=== PATIENT | male | born 1970 | race Caucasian/White ===

== ENCOUNTER 2020-07-21 13:36 | Outpatient (CLI) | payer OTHER ==
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
== END 2020-07-21 13:37 | disposition home or self-care (01) ==
LOC: SC 13:36
PROVIDERS: ATTEND Internal Medicine Pulmonary Disease
DX: G47.10 Hypersomnia, unspecified (principal); R41.89 Other symptoms and signs involving cognitive functions and awareness; G47.8 Other sleep disorders; R06.81 Apnea, not elsewhere classified; R06.83 Snoring; G47.00 Insomnia, unspecified; E66.9 Obesity, unspecified; Z68.38 Body mass index [BMI] 38.0-38.9, adult
CPT/HCPCS: 99202; 99212

== ENCOUNTER 2020-08-06 10:10 | Emergency (ER) | payer OTHER ==
[2020-08-06 11:25] LABS: BASOPHILS % (AUTO) 0.8 %; EOSINOPHILS % (AUTO) 5.7 %; HGB - HEMOGLOBIN 7.7 g/dL (14.0-18.0); LYMPHOCYTES % (AUTO) 19.5 %; MEAN CORPUSCULAR HEMOGLOBIN 25.7 pg (27.0-31.0); MEAN CORPUSCULAR HGB CONC 28.5 g/dL (32.0-36.0); MEAN PLATELET VOLUME 8.9 fL (7.4-11.4); MONOCYTES % (AUTO) 13.8 %; NEUTROPHILS % (AUTO) 59.8 %; PLT - PLATELET COUNT 85 10^3/uL (130-450); RED CELL DISTRIBUTION WIDTH 20.4 % (12.0-15.0); WHITE BLOOD COUNT 2.5 x10^3/uL (4.8-10.8)
[2020-08-06 11:27] LABS: ABNORMAL LYMPHS % (MANUAL) 0 %
[2020-08-06 11:32] LABS: BILIRUBIN,URINE NEGATIVE (NEGATIVE); GLUCOSE, URINE (UA) NEGATIVE (NEGATIVE); KETONES,URINE (UA) NEGATIVE (NEGATIVE); LEUKOCYTE ESTERASE, URINE NEGATIVE (NEGATIVE); NITRITE,URINE NEGATIVE (NEGATIVE); OCCULT BLOOD,URINE SMALL (NEGATIVE); PROTEIN,URINE NEGATIVE (NEGATIVE); UROBILINOGEN,URINE 0.2 (NORMAL) E.U./dL (NORMAL)
[2020-08-06 11:33] LABS: CLARITY,URINE CLEAR (CLEAR)
[2020-08-06 11:43] LABS: ALBUMIN 3.1 g/dL (3.2-5.5); ALBUMIN/GLOBULIN RATIO 0.6 (1.0-2.2); CALCIUM 8.5 mg/dL (8.5-10.3); CREATININE 1.3 mg/dL (0.6-1.2); TOTAL PROTEIN 7.9 g/dL (6.7-8.2)
[2020-08-06 11:45] LABS: BACTERIA,URINE None Seen /HPF (None Seen); RBC,URINE 0-5 /HPF (0-5); SQUAMOUS EPITHELIAL CELL,UR NONE SEEN (<= Few)
[2020-08-06 11:57] LABS: BAND NEUTROPHILS % (MANUAL) 2 %; BASOPHILS # (MANUAL) 0.1 10^3/uL (0-0.1); BASOPHILS % (MANUAL) 2 %; EOSINOPHILS # (MANUAL) 0.1 10^3/uL (0-0.7); LYMPHOCYTES # (MANUAL) 0.5 10^3/uL (1.5-3.5); LYMPHOCYTES % (MANUAL) 19 %; MONOCYTES # (MANUAL) 0.2 10^3/uL (0.0-1.0)
[2020-08-06 11:59] LABS: PLATELET ESTIMATE, MANUAL DECREASED (<130,000) (NORMAL)
[2020-08-06 12:00] LABS: DIFFERENTIAL COMMENT MANUAL DIFFERENTIAL; PLATELET MORPHOLOGY NORMAL APP (NORMAL)
[2020-08-06] MEDS ORDERED: LIDOCAINE-EPINEPH-TETRACAINE 3 ML SYRINGE TOP STA (12:32)
--- NOTE | 2020-08-06 13:02 | ED Physician Documentation ---
History of Present Illness - Stated complaint Stated Complaint: BLEEDING FROM OSTOMY - Chief complaint Chief Complaint: General - History obtained from History obtained from: Patient - Additonal information Additional information: Pt comes to the ED with CC of bleeding from stoma. Pt states that this has been going on for a few weeks, and that he has actually been followed by surgery and the ostomy care nurse for this. He states that there is raw skin around the edge of the stomal mucosa, which has been determined to be the source of the bleeding. Pt states that today, he checked his bag, and noticed it was about 1/3 full of blood. He thinks the bleeding may have stopped now. No lightheadedness. No obvious blood in stool. Normal stool output. Review of Systems Ten Systems: 10 systems reviewed and negative Constitutional: reports: Reviewed and negative Eyes: reports: Reviewed and negative Ears: reports: Reviewed and negative Nose: reports: Reviewed and negative Throat: reports: Reviewed and negative Cardiac: reports: Reviewed and negative Respiratory: reports: Reviewed and negative GI: reports: Reviewed and negative : reports: Reviewed and negative Skin: reports: Reviewed and negative Musculoskeletal: reports: Reviewed and negative Neurologic: reports: Reviewed and negative Psychiatric: reports: Reviewed and negative Endocrine: reports: Reviewed and negative Immunocompromised: reports: Reviewed and negative PD PAST MEDICAL HISTORY - Past Medical History Cardiovascular: Hypertension Neuro: Migraines, Peripheral neuropathy, Seizure disorder Psych: Depression, Anxiety Musculoskeletal: Osteoarthritis, Gout - Past Surgical History General: Bowel surgery, Colonoscopy, EGD - Present Medications Home Medications: Ambulatory Orders Medication Instructions Recorded Confirmed Acetaminophen [Tylenol] 650 mg PO Q6H PRN MDD 3000mg 07/28/20 08/06/20 Colchicine [Colcrys] 0.6 mg PO DAILY PRN 07/28/20 08/06/20 Lactulose 3 ml PO DAILY 07/28/20 08/06/20 Multivitamin 1 each PO DAILY 07/28/20 08/06/20 Omeprazole 40 mg PO DAILY 07/28/20 08/06/20 Oxycodone HCl 10 mg PO Q6HR PRN 07/28/20 08/06/20 Propranolol [Inderal] 20 mg PO BID 07/28/20 08/06/20 Tumeric 1 cap PO DAILY 07/28/20 08/06/20 allopurinoL [Zyloprim] 100 mg PO DAILY 07/28/20 08/06/20 - Allergies Allergies/Adverse Reactions: Allergies Allergy/AdvReac Type Severity Reaction Status Date / Time No Known Drug Allergies Allergy Verified 08/06/20 10:29 - Social History Smoking Status: Current every day smoker PD ED PE NORMAL - Vitals Vital signs reviewed: Yes - General General: Alert and oriented X 3, No acute distress - HEENT HEENT: Atraumatic, PERRL, EOMI, Moist mucous membranes - Neck Neck: Supple, no meningeal sign - Respiratory Respiratory: No respiratory distress - Abdomen Abdomen: Soft, Non tender, Non distended, Other (healthy-appearing ostomy site with mild skin breakdown around edges. No active bleeding, though mild amount of fresh, bloody residue is noted. Normal-appearing stool. No surrounding erythema.) - Derm Derm: Normal color, Warm and dry, No rash - Extremities Extremities: No deformity - Neuro Neuro: Alert and oriented X 3 - Psych Psych: Normal mood, Normal affect Results - Vitals Vitals: Vital Signs - 24 hr 08/06/20 08/06/20 08/06/20 12:07 13:00 13:30 Temperature 36.6 C 36.9 C Heart Rate 72 80 83 Respiratory 17 16 24 Rate Blood Pressure 156/72 H 161/77 H 157/82 H O2 Saturation 100 100 99 Oxygen O2 Source Room air - Labs Labs: Laboratory Tests 08/06/20 08/06/20 08/06/20 11:00 11:20 11:22 WBC 2.5 L RBC 3.00 L Hgb 7.7 L Hct 27.0 L MCV 90.0 MCH 25.7 L MCHC 28.5 L RDW 20.4 H Plt Count 85 L MPV 8.9 Neut # (Auto) Not Reportable Lymph # (Auto) Not Reportable [place] # (Auto) Not Reportable Eos # (Auto) Not Reportable Baso # (Auto) Not Reportable Absolute Nucleated RBC Not Reportable Total Counted 100 Band Neuts % (Manual) 2 Abnorm Lymph % (Manual) 0 Nucleated RBC % Not Reportable Neutrophils # (Manual) 1.7 Lymphocytes # (Manual) 0.5 L Monocytes # (Manual) 0.2 Eosinophils # (Manual) 0.1 Basophils # (Manual) 0.1 Differential Comment MANUAL DIFFERENTIAL WBC Morphology NORMAL APPEARANCE Platelet Estimate DECREASED (<130,000) Platelet Morphology NORMAL GWEN RBC Morph Micro Appear 1+ HYPOCHROMASIA Sodium 139 Potassium 4.3 Chloride 108 Carbon Dioxide 19 L Anion Gap 12.0 BUN 32 H Creatinine 1.3 H Estimated GFR (MDRD) 59 L Glucose 123 H Calcium 8.5 Total Bilirubin 1.0 AST 75 H ALT 38 Alkaline Phosphatase 102 Total Protein 7.9 Albumin 3.1 L Globulin 4.8 H Albumin/Globulin Ratio 0.6 L Lipase 70 H Urine Color YELLOW Urine Clarity CLEAR Urine pH 6.0 Ur Specific [place] 1.020 Urine Protein NEGATIVE Urine Glucose (UA) NEGATIVE Urine Ketones NEGATIVE Urine Occult Blood SMALL H Urine Nitrite NEGATIVE Urine Bilirubin NEGATIVE Urine Urobilinogen 0.2 (NORMAL) Ur Leukocyte Esterase NEGATIVE Urine RBC 0-5 Urine WBC 0-3 Ur Squamous Epith Cells NONE SEEN Urine Bacteria None Seen Ur Microscopic Review INDICATED Urine Culture Comments NOT INDICATED PD MEDICAL DECISION MAKING - ED course Complexity details: considered differential, d/w patient ED course: I d/w pt that there is no current bleeding, and I do not recommend cautery at this time. I have applied LET to the areas of concern, and we have replaced the ostomy bag. We have discussed the usual indications for return. Departure - Departure Disposition: 01 Home, Self Care Clinical Impression: Complication of ostomy Condition: Stable Instructions: Colostomy Stoma Care Comments: Your ostomy site actually looks pretty good today. There is no evidence of ongoing bleeding, though there was some raw mucosa that is likely the source of the bleeding when it does occur. We have placed a vasoconstricting agent, epinephrine, on the area to help cinch up the blood vessels and prevent bleeding in the next few hours. Please continue to follow-up with your ostomy care team and surgeon for further intervention regarding this. Discharge Date/Time: 08/06/20 13:45
[2020-08-06 13:30] VITALS: BP 157/82
== END 2020-08-06 13:45 | disposition home or self-care (01) ==
LOC: ED 10:10
DX: K94.01 Colostomy hemorrhage (principal); I10 Essential (primary) hypertension; F17.200 Nicotine dependence, unspecified, uncomplicated
CPT/HCPCS: 36415; 80053; 81001; 81003; 83690; 85025; 87086; 99283; 99284

== ENCOUNTER 2020-08-14 13:39 | Observation (INO) | payer OTHER ==
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
[2020-08-14 14:50] LABS: BASOPHILS % (AUTO) 0.7 %; EOSINOPHILS # (AUTO) 0.2 10^3/uL (0.0-0.7); EOSINOPHILS % (AUTO) 3.7 %; HGB - HEMOGLOBIN 7.1 g/dL (14.0-18.0); LYMPHOCYTES # (AUTO) 0.5 10^3/uL (1.5-3.5); LYMPHOCYTES % (AUTO) 12.6 %; MEAN CORPUSCULAR HEMOGLOBIN 25.5 pg (27.0-31.0); MEAN CORPUSCULAR HGB CONC 28.1 g/dL (32.0-36.0); MONOCYTES # (AUTO) 0.5 10^3/uL (0.0-1.0); MONOCYTES % (AUTO) 12.3 %; NEUTROPHILS # (AUTO) 2.9 10^3/uL (1.5-6.6); NEUTROPHILS % (AUTO) 70.5 %; PLT - PLATELET COUNT 113 10^3/uL (130-450); RED BLOOD COUNT 2.78 10^6/uL (4.70-6.10); RED CELL DISTRIBUTION WIDTH 19.2 % (12.0-15.0); WHITE BLOOD COUNT 4.1 x10^3/uL (4.8-10.8)
[2020-08-14] MEDS ORDERED: ONDANSETRON 4 MG/2 ML VIAL IVP PRN (15:19)
[2020-08-14] MEDS ORDERED: SODIUM CHLORIDE FLUSH 0.9% 10 ML SYRINGE IVP PRN (15:19)
--- NOTE | 2020-08-14 15:29 | HISTORY & PHYSICAL EXAMINATION ---
Chief Complaint - Chief Complaint Chief Complaint: Bleeding from ostomy History of Present Illness - Admitted From Admitted From:: Home - History Obtained From Records Reviewed: Yes History obtained from: Patient, ER Physician, EMR - History of Present Illness HPI Comment/Other: This is a 50-year-old male with a past medical history significant for liver cirrhosis secondary to alcohol abuse, hypertension, obesity who presents today complaining of bleeding from his ostomy. He states that he had colectomy last year when he was in [place] for severe rectal and abdominal infection. That is when he had the ostomy. He reports things have been going well up until about a few weeks ago when he hit his stoma on the steering wheel of his car. He states that this trauma caused bleeding from the stoma. He was hospitalized at [facility] over 2 weeks ago and required 3 units of packed red blood cell to be transfused as he was observed overnight. He was seen in the ER about a week ago here for similar complaints. Dates that he has a general surgeon and a quick technician, Dr. Luis, at [facility] which he follows with. He has had an ultrasound of his liver and an MRI scheduled. He does get care for his ostomy here at the [facility] with Krystal. He saw Krystal just a few days ago and he has been treating his ostomy site with silver nitrate. He believes it started bleeding again today because he has had cold-like symptoms over the past 2 to 3 days and he took Benadryl which made him sleepy and he believes he rolled over on the side of the ostomy which irritated it and caused it to bleed. He states he was due for Covid 2 weeks ago and this was negative but he did develop cold-like symptoms over the past 2 to 3 days. He states that predominantly just nasal congestion. He denies any fevers, chills, sore throat, chest pain, dyspnea. He does feel little fatigued overall. He denies any other evidence of bleeding. Reports no hematemesis. Denies any abdominal pain, dysuria, urgency, hematuria. He reports no prior history of DVTs. In the emergency department, he was found to have a hemoglobin of 7.[address] atelet count of 113. His INR was 1.3. His BUN and creatinine were elevated at 48 and 1.7 respectively. His bicarbonate was 15. Given the drop in his hemoglobin and ongoing bleeding, medicine was consulted to place the patient in observation overnight. History - Past Medical History Cardiovascular: reports: Hypertension Neuro: reports: Migraines, Peripheral neuropathy GI: reports: Esophageal varices, Cirrhosis Psych: reports: Depression, Anxiety Musculoskeletal: reports: Osteoarthritis, Gout MRSA Hx?: No - Past Surgical History General: reports: Bowel surgery, Colonoscopy, EGD - Family & Social History Family History Comment/Other: Father is alive and well in his 80s. His mother from metastatic lung cancer. She was a non-smoker. Living arrangement: At home Living Situation: With spouse/s.o. Social History Notes: He lives at home with his who is a marine. They previously lived in [facility] for about 15 years before moving back to [facility] about 8 months ago. He smoked on and off for about 25 years but usually smoked no more than 3 cigarettes a day. He quit in June of this year. He has a history of alcohol abuse and has been drinking alcohol on and off now for most of his life. He did quit alcohol about 2 weeks ago. Meds/Allgy - Home Medications Home Medications: Ambulatory Orders Medication Instructions Recorded Confirmed Acetaminophen [Tylenol] 650 mg PO Q6H PRN MDD 3000mg 07/28/20 08/06/20 Colchicine [Colcrys] 0.6 mg PO DAILY PRN 07/28/20 08/06/20 Lactulose 15 ml PO DAILY 07/28/20 08/06/20 Multivitamin 1 each PO DAILY 07/28/20 08/06/20 Tumeric 1 cap PO DAILY 07/28/20 08/06/20 allopurinoL [Zyloprim] 100 mg PO DAILY 07/28/20 08/06/20 Lisinopril [Prinivil] 5 mg PO DAILY 08/14/20 Omeprazole Magnesium 40 mg PO DAILY 08/14/20 Propranolol [Inderal] 10 mg PO BID 08/14/20 - Allergies Allergies/Adverse Reactions: Allergies Allergy/AdvReac Type Severity Reaction Status Date / Time No Known Drug Allergies Allergy Verified 08/14/20 13:44 Review of Systems - Constitutional Constitutional: reports: Fatigue. denies: Fever, Chills, Malaise - Ears, Nose & Throat Ears, Nose & Throat: reports: Nasal congestion. denies: Nasal discharge, Sore throat - Cardiovascular Cariovascular: denies: Chest pain, Edema, Exertional dyspnea, Decr. exercise tolerance - Respiratory Respiratory: denies: Cough, SOB at rest, SOB with exertion - Gastrointestinal Gastrointestinal: reports: Other (Bleeding from ostomy.). denies: Abdominal pain, Diarrhea, Change in bowel habits, Nausea, Vomiting - Genitourinary Genitourinary: denies: Dysuria, Frequency, Urgency - Musculoskeletal Musculoskeletal: denies: Back pain - Neurological Neurological: denies: General weakness - Hematologic/Lymphatic Hematologic/Lymphatic: reports: Anemia. denies: Blood clots, Bleeding tendencies - All Other Systems All Other Systems: reports: Reviewed and negative Prior Level of Functionality: He is indeependent with his ADLs. Exam - Vital Signs Reviewed Vital Signs: Yes Vital Signs: Vital Signs x48h Temp Pulse Resp BP Pulse Ox 08/14/20 13:44 36.5 C 90 16 190/100 H 100 - Physical Exam General Appearance: positive: No acute distress, Alert Eyes Bilateral: positive: Normal inspection, Conjunctivae nml ENT: positive: ENT inspection nml Neck: positive: Nml inspection Respiratory: positive: No respiratory distress. negative: Wheezes, Rales Cardiovascular: positive: Regular rate & rhythm, No murmur. negative: Tachycardia, Systolic murmur Abdomen: positive: Non-tender, Other (Stoma in place with bleeding noted in the bag. There is no significant active bleeding at this time.). negative: Guarding, Rebound Skin: positive: Warm, Dry Extremities: positive: Pedal edema (+1 pitting edema in bilateral lower extremities. Right leg is more edematous.). negative: Calf tenderness, Wes's sign/cords Neurologic/Psychiatric: positive: Oriented x3, Motor nml Conclusion/Plan - Problem List (1) Bleeding from colostomy stoma Conclusion/Plan: This has been a problem now for the past 3 weeks and appears to have been exacerbated today by trauma to the site. Although he does have bleeding in his ostomy bag, there is not a significant amount of blood at this time. He is anemic and this is worse compared to his visit from [address] will place him in observation overnight and resume 1 unit of packed red blood cell. We will ask the wound care ostomy nurse to evaluate him tomorrow. He was seen by general surgery in the emergency department and at this time, observation is recommended. He will need continued outpatient follow-up with his quick technician and general surgeon which he will be seeing next month. (2) Anemia due to blood loss Conclusion/Plan: It is unclear what his baseline hemoglobin is given we do not have any prior labs on the patient. His hemoglobin was 7.7 when he was seen here about 1 week ago. We will transfuse him 1 unit of packed red blood cell now. We will check iron studies, vitamin B12, folate. We will trend his hemoglobin every 8 hours. Transfuse for goal hemoglobin greater than 7. Plan is for endoscopy with general surgery. (3) Acute kidney injury Conclusion/Plan: His creatinine is elevated at 1.7. Labs from last week revealed a creatinine of 1.3 at that time. It is unclear if this is acute on chronic kidney injury given you do not have prior labs. We will hydrate him with lactated Ringer's. Hold lisinopril. Avoid nephrotoxins. Recheck renal function in the morning. (4) Liver cirrhosis Conclusion/Plan: This is secondary to alcohol use. His LFTs are stable. He has follow-up with GI next month in [place]. We will continue propranolol and Protonix. Qualifiers: Hepatic cirrhosis type: alcoholic cirrhosis (5) Thrombocytopenia Conclusion/Plan: This is secondary to his cirrhosis. No indication for transfusion. - Lab Results Lab results reviewed: Yes Fish Bones: 08/14/20 14:40 08/14/20 15:26 Core Measures - Anticipated LOS I expect patient to be DC'd or transferred within 96 hours.: Yes - Issues Hospital Issues and Management Plan: 50-year-old male with a history liver cirrhosis and colostomy in place after abdominal infection last year presents with bleeding from the ostomy site. Will place in observation for 1 unit of packed red blood cell and monitoring for further bleeding. - DVT/VTE - Prophylaxis VTE/DVT Device ordered at admit?: No VTE/DVT Prophylaxis med ordered at admit?: No Not Ordered - Medical Reason: Contraindicated
[2020-08-14 15:37] LABS: PLATELET ESTIMATE, MANUAL DECREASED (<130,000) (NORMAL); PLATELET MORPHOLOGY NORMAL APPEARANCE (NORMAL)
[2020-08-14 15:45] LABS: INR 1.3 (0.8-1.2); PT - PROTHROMBIN TIME 14.6 secs (9.9-12.6)
[2020-08-14 15:50] LABS: ALBUMIN 3.2 g/dL (3.2-5.5); ALBUMIN/GLOBULIN RATIO 0.6 (1.0-2.2); BILIRUBIN,TOTAL 1.3 mg/dL (0.2-1.0); CALCIUM 8.7 mg/dL (8.5-10.3); CREATININE 1.7 mg/dL (0.6-1.2); TOTAL PROTEIN 8.3 g/dL (6.7-8.2)
[2020-08-14 15:52] LABS: PARTIAL THROMBOPLASTIN TIME 29.7 secs (24.9-33.3)
[2020-08-14 16:15] LABS: % IRON SATURATION 12 % (20-50); IRON 79 ug/dL (45-182); TOTAL IRON BINDING CAPACITY 641 ug/dL (250-450); TRANSFERRIN 458 mg/dL (180-329)
[2020-08-14 16:18] LABS: C. PNEUMONIAE- RESP PCR PANEL NOT DETECTED
[2020-08-14 16:24] LABS: FERRITIN 8.8 ng/mL (23.9-336.2)
--- NOTE | 2020-08-14 16:30 | HISTORY & PHYSICAL EXAMINATION ---
Chief Complaint - Chief Complaint Chief Complaint: blood per stoma History of Present Illness - Admitted From Admitted From:: ed - History Obtained From History obtained from: patient Exam Limitations: limited knowledge of history - History of Present Illness HPI Comment/Other: 50 year old with a stoma. Stoma surgery left lower quadrant performed in [place]. He is unsure of the details. He is not aware of the diagnosis or history of inflammatory bowel disease. He states he sees [facility] gastroenterology and formerly [facility] surgery. He states he had a large perianal wound and shows a picture from his phone. He has history of cirrhosis and labs today confirm liver dysfunction. He has had periodic blood in the stoma bag for the last 3 weeks. He states [facility] gastroenterology has ordered ultrasound and mri. History - Past Medical History Cardiovascular: reports: Hypertension Neuro: reports: Migraines, Peripheral neuropathy, Seizure disorder Psych: reports: Depression, Anxiety Musculoskeletal: reports: Osteoarthritis, Gout MRSA Hx?: No - Past Surgical History General: reports: Bowel surgery, Colonoscopy, EGD Meds/Allgy - Home Medications Home Medications: Ambulatory Orders Medication Instructions Recorded Confirmed Acetaminophen [Tylenol] 650 mg PO Q6H PRN MDD 3000mg 07/28/20 08/06/20 Colchicine [Colcrys] 0.6 mg PO DAILY PRN 07/28/20 08/06/20 Lactulose 15 ml PO DAILY 07/28/20 08/06/20 Multivitamin 1 each PO DAILY 07/28/20 08/06/20 Tumeric 1 cap PO DAILY 07/28/20 08/06/20 allopurinoL [Zyloprim] 100 mg PO DAILY 07/28/20 08/06/20 Lisinopril [Prinivil] 5 mg PO DAILY 08/14/20 Omeprazole Magnesium 40 mg PO DAILY 08/14/20 - Allergies Allergies/Adverse Reactions: Allergies Allergy/AdvReac Type Severity Reaction Status Date / Time No Known Drug Allergies Allergy Verified 08/14/20 13:44 Exam - Vital Signs Reviewed Vital Signs: Yes Vital Signs: Vital Signs x48h Temp Pulse Resp BP Pulse Ox 08/14/20 13:44 36.5 C 90 16 190/100 H 100 - Physical Exam General Appearance: positive: No acute distress, Alert Eyes Bilateral: positive: Normal inspection, PERRL, EOMI, No scleral icterus ENT: positive: No signs of dehydration Neck: positive: No JVD, Trachea midline Respiratory: positive: No respiratory distress Abdomen: positive: Non-tender, No distention, Other (abdomen obese. pink stoma with less than 30 ml blood in the bag and surrounding pad.) Conclusion/Plan - Problem List (1) Anemia due to blood loss Conclusion/Plan: He has significant liver dysfunction. He has an established surgeon at [facility] and established roll forger at [facility]. Minimal records available at this time. No significant bleeding at this time. No apparent active bleeding currently. Recommend medical management and follow up with his established physicians. He is not a surgical candidate at [facility]. I have suggested he see surgeons at the . This may become a difficult ongoing problem. I don't believe simple sutures and/or cautery would offer superintendent container terminal benefit over observation. when bag recently taken down there was no apparent bleeding of the stoma - Lab Results Lab results reviewed: Yes Fish Bones: 08/14/20 14:40 08/14/20 15:26
--- NOTE | 2020-08-14 18:31 | PHARMACY PROGRESS NOTE ---
- Best Possible Medication History Admit Date and Time: 08/14/20 1519 Processed by: Pharmacy Medication History completed: Yes Patient Interview: Completed Secondary Source(s): Physician records, Pharmacy records, Insurance records As the person ultimately responsible for medication therapy, providers are able to order a medication from an existing home medication list in [facility] via the "Reconcile Routine" prior to Confirmation of that medication by office support associate. Such practice is discouraged except when the physician, in their clinical judgment, deems that a medical need exists for a medication without regard to previous use.
[2020-08-14] MEDS: SODIUM CHLORIDE FLUSH 0.9% 10 ML SYRINGE IVP SCH (19:04)
[2020-08-14] MEDS: PROPRANOLOL 10 MG TABLET PO SCH (20:35)
[2020-08-14] MEDS: LACTATED RINGERS 1,000 ML IV SCH (22:00)
[2020-08-15] MEDS: SODIUM CHLORIDE FLUSH 0.9% 10 ML SYRINGE IVP SCH ×4 (02:25→23:37)
[2020-08-15] MEDS: PANTOPRAZOLE 40 MG TABLET PO SCH (06:01)
[2020-08-15 07:31] LABS: HGB - HEMOGLOBIN 7.5 g/dL (14.0-18.0)
--- NOTE | 2020-08-15 07:31 | Ultrasound Report ---
PROCEDURE: Duplex Ext Veins Bilateral INDICATIONS: Bilateral lower extremity edema. TECHNIQUE: Real-time imaging, as well as color and pulse Doppler interrogation, were performed of the deep veins of both legs from the inguinal ligament to the popliteal fossa. COMPARISON: None FINDINGS: The deep veins are normally compressible, and free of intraluminal thrombus. Color and pu lse Doppler demonstrate normal phasic intravascular flow. There is normal augmentation response to d istal compression maneuver. IMPRESSION: No evidence of deep vein thrombosis involving either the right or left lower extremities. Reviewed by: Radha Menard MD, PhD on 08/15/2020 7:30 AM PST Approved by: Radha Menard MD, PhD on 08/15/2020 7:30 AM PST Station ID: [id number]
[2020-08-15] MEDS: LACTATED RINGERS 1,000 ML IV SCH (07:40)
[2020-08-15] MEDS: PROPRANOLOL 10 MG TABLET PO SCH ×2 (07:46→20:13)
[2020-08-15] MEDS: FERROUS SULFATE 325 MG TABLET PO SCH ×2 (07:46→17:05)
[2020-08-15 07:48] LABS: ALBUMIN 2.9 g/dL (3.2-5.5); BILIRUBIN,DIRECT 0.5 mg/dL (0.1-0.5); BILIRUBIN,TOTAL 1.3 mg/dL (0.2-1.0); CALCIUM 8.3 mg/dL (8.5-10.3); CREATININE 1.6 mg/dL (0.6-1.2); TOTAL PROTEIN 7.3 g/dL (6.7-8.2)
[2020-08-15] MEDS ORDERED: POTASSIUM CHLORIDE 20 MEQ TABLET PO ONE (08:18)
[2020-08-15] MEDS ORDERED: oxyCODONE 5 MG TABLET PO PRN (08:33)
[2020-08-15] MEDS: allopurinoL 100 MG TABLET PO SCH (09:00)
[2020-08-15] MEDS: LACTULOSE 10 GM /15 ML UDC PO SCH (09:00)
[2020-08-15 13:51] LABS: HGB - HEMOGLOBIN 7.3 g/dL (14.0-18.0)
--- NOTE | 2020-08-15 14:31 | PROVIDER PROGRESS NOTE ---
Subjective - Prog Note Date Prog Note Date: 08/15/20 - Subjective Subjective: feels ok. still with some blood per stoma Objective - Vital Signs/Intake & Output Reviewed Vital Signs: Yes Vital Signs: Vital Signs x48h Temp Pulse Resp BP Pulse Ox 08/15/20 12:28 37 C 82 20 149/59 H 96 08/15/20 07:34 36.6 C 77 17 158/69 H 94 Intake & Output: Intake & Output 08/12/20 08/13/20 08/14/20 08/15/20 23:59 23:59 23:59 23:59 Intake Total 2150 2016.667 Output Total 1000 925 Balance 1150 1091.667 - Objective General Appearance: positive: No acute distress, Alert Eyes Bilateral: positive: PERRL, No scleral icterus Neck: positive: No JVD Respiratory: positive: No respiratory distress Abdomen: positive: No distention, Other (large parastomal hernia small blood per stoma today/ bloody appearing stool) - Lab Results Fish Bones: 08/15/20 13:45 08/15/20 07:26 Other Labs: Lab Results x24hrs 08/15/20 08/15/20 08/15/20 Range/Units 13:45 07:26 07:26 WBC (4.8-10.8) x10^3/uL RBC (4.70-6.10) 10^6/uL Hgb 7.3 L 7.5 L (14.0-18.0) g/dL Hct 24.8 L 24.8 L (42.0-52.0) % MCV (80.0-94.0) fL MCH (27.0-31.0) pg MCHC (32.0-36.0) g/dL RDW (12.0-15.0) % Plt Count (130-450) 10^3/uL MPV (7.4-11.4) fL Neut # (Auto) (1.5-6.6) 10^3/uL Lymph # (Auto) (1.5-3.5) 10^3/uL [place] # (Auto) (0.0-1.0) 10^3/uL Eos # (Auto) (0.0-0.7) 10^3/uL Baso # (Auto) (0.0-0.1) 10^3/uL Absolute Nucleated RBC x10^3/uL Nucleated RBC % /100WBC WBC Morphology (NORMAL) Platelet Estimate (NORMAL) Platelet Morphology (NORMAL) RBC Morph Micro Appear (NORMAL) PT (9.9-12.6) secs INR (0.8-1.2) APTT (24.9-33.3) secs Sodium 136 (135-145) mmol/L Potassium 3.4 L (3.5-5.0) mmol/L Chloride 107 (101-111) mmol/L Carbon Dioxide 17 L (21-32) mmol/L Anion Gap 12.0 (6-13) BUN 34 H (6-20) mg/dL Creatinine 1.6 H (0.6-1.2) mg/dL Estimated GFR (MDRD) 46 L (>89) Glucose 143 H (70-100) mg/dL Calcium 8.3 L (8.5-10.3) mg/dL Iron (45-182) ug/dL TIBC (250-450) ug/dL % Saturation (20-50) % Transferrin (180-329) mg/dL Ferritin (23.9-336.2) ng/mL Total Bilirubin 1.3 H (0.2-1.0) mg/dL Direct Bilirubin 0.5 (0.1-0.5) mg/dL AST 62 H (10-42) IU/L ALT 30 (10-60) IU/L Alkaline Phosphatase 87 (42-121) IU/L Total Protein 7.3 (6.7-8.2) g/dL Albumin 2.9 L (3.2-5.5) g/dL Globulin 4.4 H (2.1-4.2) g/dL Albumin/Globulin Ratio (1.0-2.2) Lipase (22-51) U/L Vitamin B12 (180-914) pg/mL Folate (5.90 - >24.8) ng/mL Nasal Adenovirus (PCR) Nasal B. parapertussis DNA (PCR) Nasal Coronavir 229E PCR Nasal Coronavir HKU1 PCR Nasal Coronavir NL63 PCR Nasal Coronavir OC43 PCR Nasal Enterovir/Rhinovir PCR Nasal Influenza B PCR Nasal Influenza A PCR Nasal Parainfluen 1 PCR Nasal Parainfluen 2 PCR Nasal Parainfluen 3 PCR Nasal Parainfluen 4 PCR Nasal RSV (PCR) Nasal B.pertussis DNA PCR Nasal C.pneumoniae (PCR) Abe Human Metapneumo PCR Nasal M.pneumoniae (PCR) Nasal SARS-CoV-2 (PCR) Blood Type Blood Type Recheck Antibody Screen Crossmatch IS Only 08/14/20 08/14/20 08/14/20 Range/Units 22:40 15:26 15:26 WBC (4.8-10.8) x10^3/uL RBC (4.70-6.10) 10^6/uL Hgb 8.0 L (14.0-18.0) g/dL Hct 27.5 L (42.0-52.0) % MCV (80.0-94.0) fL MCH (27.0-31.0) pg MCHC (32.0-36.0) g/dL RDW (12.0-15.0) % Plt Count (130-450) 10^3/uL MPV (7.4-11.4) fL Neut # (Auto) (1.5-6.6) 10^3/uL Lymph # (Auto) (1.5-3.5) 10^3/uL [place] # (Auto) (0.0-1.0) 10^3/uL Eos # (Auto) (0.0-0.7) 10^3/uL Baso # (Auto) (0.0-0.1) 10^3/uL Absolute Nucleated RBC x10^3/uL Nucleated RBC % /100WBC WBC Morphology (NORMAL) Platelet Estimate (NORMAL) Platelet Morphology (NORMAL) RBC Morph Micro Appear (NORMAL) PT (9.9-12.6) secs INR (0.8-1.2) APTT (24.9-33.3) secs Sodium (135-145) mmol/L Potassium (3.5-5.0) mmol/L Chloride (101-111) mmol/L Carbon Dioxide (21-32) mmol/L Anion Gap (6-13) BUN (6-20) mg/dL Creatinine (0.6-1.2) mg/dL Estimated GFR (MDRD) (>89) Glucose (70-100) mg/dL Calcium (8.5-10.3) mg/dL Iron 79 (45-182) ug/dL TIBC 641 H (250-450) ug/dL % Saturation 12 L (20-50) % Transferrin 458 H (180-329) mg/dL Ferritin 8.8 L (23.9-336.2) ng/mL Total Bilirubin (0.2-1.0) mg/dL Direct Bilirubin (0.1-0.5) mg/dL AST (10-42) IU/L ALT (10-60) IU/L Alkaline Phosphatase (42-121) IU/L Total Protein (6.7-8.2) g/dL Albumin (3.2-5.5) g/dL Globulin (2.1-4.2) g/dL Albumin/Globulin Ratio (1.0-2.2) Lipase (22-51) U/L Vitamin B12 767 (180-914) pg/mL Folate 47.00 (5.90 - >24.8) ng/mL Nasal Adenovirus (PCR) Nasal B. parapertussis DNA (PCR) Nasal Coronavir 229E PCR Nasal Coronavir HKU1 PCR Nasal Coronavir NL63 PCR Nasal Coronavir OC43 PCR Nasal Enterovir/Rhinovir PCR Nasal Influenza B PCR Nasal Influenza A PCR Nasal Parainfluen 1 PCR Nasal Parainfluen 2 PCR Nasal Parainfluen 3 PCR Nasal Parainfluen 4 PCR Nasal RSV (PCR) Nasal B.pertussis DNA PCR Nasal C.pneumoniae (PCR) Abe Human Metapneumo PCR Nasal M.pneumoniae (PCR) Nasal SARS-CoV-2 (PCR) Blood Type Blood Type Recheck Antibody Screen Crossmatch IS Only 08/14/20 08/14/20 08/14/20 Range/Units 15:26 15:26 15:26 WBC (4.8-10.8) x10^3/uL RBC (4.70-6.10) 10^6/uL Hgb (14.0-18.0) g/dL Hct (42.0-52.0) % MCV (80.0-94.0) fL MCH (27.0-31.0) pg MCHC (32.0-36.0) g/dL RDW (12.0-15.0) % Plt Count (130-450) 10^3/uL MPV (7.4-11.4) fL Neut # (Auto) (1.5-6.6) 10^3/uL Lymph # (Auto) (1.5-3.5) 10^3/uL [place] # (Auto) (0.0-1.0) 10^3/uL Eos # (Auto) (0.0-0.7) 10^3/uL Baso # (Auto) (0.0-0.1) 10^3/uL Absolute Nucleated RBC x10^3/uL Nucleated RBC % /100WBC WBC Morphology (NORMAL) Platelet Estimate (NORMAL) Platelet Morphology (NORMAL) RBC Morph Micro Appear (NORMAL) PT 14.6 H (9.9-12.6) secs INR 1.3 H (0.8-1.2) APTT 29.7 (24.9-33.3) secs Sodium 135 (135-145) mmol/L Potassium 4.3 (3.5-5.0) mmol/L Chloride 108 (101-111) mmol/L Carbon Dioxide 15 L (21-32) mmol/L Anion Gap 12.0 (6-13) BUN 48 H (6-20) mg/dL Creatinine 1.7 H (0.6-1.2) mg/dL Estimated GFR (MDRD) 43 L (>89) Glucose 132 H (70-100) mg/dL Calcium 8.7 (8.5-10.3) mg/dL Iron (45-182) ug/dL TIBC (250-450) ug/dL % Saturation (20-50) % Transferrin (180-329) mg/dL Ferritin (23.9-336.2) ng/mL Total Bilirubin 1.3 H (0.2-1.0) mg/dL Direct Bilirubin (0.1-0.5) mg/dL AST 63 H (10-42) IU/L ALT 34 (10-60) IU/L Alkaline Phosphatase 99 (42-121) IU/L Total Protein 8.3 H (6.7-8.2) g/dL Albumin 3.2 (3.2-5.5) g/dL Globulin 5.1 H (2.1-4.2) g/dL Albumin/Globulin Ratio 0.6 L (1.0-2.2) Lipase 128 H (22-51) U/L Vitamin B12 (180-914) pg/mL Folate (5.90 - >24.8) ng/mL Nasal Adenovirus (PCR) Nasal B. parapertussis DNA (PCR) Nasal Coronavir 229E PCR Nasal Coronavir HKU1 PCR Nasal Coronavir NL63 PCR Nasal Coronavir OC43 PCR Nasal Enterovir/Rhinovir PCR Nasal Influenza B PCR Nasal Influenza A PCR Nasal Parainfluen 1 PCR Nasal Parainfluen 2 PCR Nasal Parainfluen 3 PCR Nasal Parainfluen 4 PCR Nasal RSV (PCR) Nasal B.pertussis DNA PCR Nasal C.pneumoniae (PCR) Abe Human Metapneumo PCR Nasal M.pneumoniae (PCR) Nasal SARS-CoV-2 (PCR) Blood Type A POSITIVE Blood Type Recheck Antibody Screen NEGATIVE Crossmatch IS Only See Detail 08/14/20 08/14/20 08/14/20 Range/Units 15:15 14:40 14:40 WBC 4.1 L (4.8-10.8) x10^3/uL RBC 2.78 L (4.70-6.10) 10^6/uL Hgb 7.1 L (14.0-18.0) g/dL Hct 25.3 L (42.0-52.0) % MCV 91.0 (80.0-94.0) fL MCH 25.5 L (27.0-31.0) pg MCHC 28.1 L (32.0-36.0) g/dL RDW 19.2 H (12.0-15.0) % Plt Count 113 L (130-450) 10^3/uL MPV 11.0 (7.4-11.4) fL Neut # (Auto) 2.9 (1.5-6.6) 10^3/uL Lymph # (Auto) 0.5 L (1.5-3.5) 10^3/uL [place] # (Auto) 0.5 (0.0-1.0) 10^3/uL Eos # (Auto) 0.2 (0.0-0.7) 10^3/uL Baso # (Auto) 0.0 (0.0-0.1) 10^3/uL Absolute Nucleated RBC 0.00 x10^3/uL Nucleated RBC % 0.0 /100WBC WBC Morphology NORMAL APPEARANCE (NORMAL) Platelet Estimate DECREASED (<130,000) (NORMAL) Platelet Morphology NORMAL APPEARANCE (NORMAL) RBC Morph Micro Appear 1+ POLYCHROMASIA (NORMAL) PT (9.9-12.6) secs INR (0.8-1.2) APTT (24.9-33.3) secs Sodium (135-145) mmol/L Potassium (3.5-5.0) mmol/L Chloride (101-111) mmol/L Carbon Dioxide (21-32) mmol/L Anion Gap (6-13) BUN (6-20) mg/dL Creatinine (0.6-1.2) mg/dL Estimated GFR (MDRD) (>89) Glucose (70-100) mg/dL Calcium (8.5-10.3) mg/dL Iron (45-182) ug/dL TIBC (250-450) ug/dL % Saturation (20-50) % Transferrin (180-329) mg/dL Ferritin (23.9-336.2) ng/mL Total Bilirubin (0.2-1.0) mg/dL Direct Bilirubin (0.1-0.5) mg/dL AST (10-42) IU/L ALT (10-60) IU/L Alkaline Phosphatase (42-121) IU/L Total Protein (6.7-8.2) g/dL Albumin (3.2-5.5) g/dL Globulin (2.1-4.2) g/dL Albumin/Globulin Ratio (1.0-2.2) Lipase (22-51) U/L Vitamin B12 (180-914) pg/mL Folate (5.90 - >24.8) ng/mL Nasal Adenovirus (PCR) NOT DETECTED Nasal B. parapertussis DNA (PCR) NOT DETECTED Nasal Coronavir 229E PCR NOT DETECTED Nasal Coronavir HKU1 PCR NOT DETECTED Nasal Coronavir NL63 PCR NOT DETECTED Nasal Coronavir OC43 PCR NOT DETECTED Nasal Enterovir/Rhinovir PCR NOT DETECTED Nasal Influenza B PCR NOT DETECTED Nasal Influenza A PCR NOT DETECTED Nasal Parainfluen 1 PCR NOT DETECTED Nasal Parainfluen 2 PCR NOT DETECTED Nasal Parainfluen 3 PCR NOT DETECTED Nasal Parainfluen 4 PCR NOT DETECTED Nasal RSV (PCR) NOT DETECTED Nasal B.pertussis DNA PCR NOT DETECTED Nasal C.pneumoniae (PCR) NOT DETECTED Abe Human Metapneumo PCR NOT DETECTED Nasal M.pneumoniae (PCR) NOT DETECTED Nasal SARS-CoV-2 (PCR) NOT DETECTED Blood Type Blood Type Recheck A POSITIVE Antibody Screen Crossmatch IS Only Assessment/Plan - Problem List (1) Anemia due to blood loss Impression: He has significant liver dysfunction and a large parastomal hernia with blood present in his stoma bag. He is a patient of [facility]. IF he dev elops significant bleeding plan urgent endoscopy this hospitalization. If he is stable and bleeding is minimal to none plan follow up with his surgeon and his adobe layer as already scheduled
--- NOTE | 2020-08-15 16:02 | PROVIDER PROGRESS NOTE ---
Subjective - Prog Note Date Prog Note Date: 08/15/20 - Subjective Subjective: He reports doing well. Still has a little bit of bleeding from his stoma this morning. Denies any abdominal pain. Current Medications - Current Medications Current Medications: Active Medications Allopurinol (Allopurinol 100 Mg Tablet) 100 mg PO DAILY [facility] Last Admin: 08/15/20 09:00 Dose: 100 mg Documented by: Ferrous Sulfate (Ferrous Sulfate 325 Mg Tablet) 325 mg PO BIDWM [facility] Last Admin: 08/15/20 07:46 Dose: 325 mg Documented by: Lactulose (Lactulose 10 Gm /15 Ml Udc) 15 gm PO DAILY [facility] Last Admin: 08/15/20 09:00 Dose: 15 gm Documented by: Multivitamins (Multivitamin Tablet) 1 tab PO DAILYWM [facility] Ondansetron HCl (Ondansetron 4 Mg/2 Ml Vial) 4 mg IVP Q6HR PRN PRN Reason: Nausea / Vomiting Oxycodone HCl (Oxycodone 5 Mg Tablet) 5 mg PO Q6H PRN PRN Reason: PAIN Pantoprazole Sodium (Pantoprazole 40 Mg Tablet) 40 mg PO QDAC [facility] Last Admin: 08/15/20 06:01 Dose: 40 mg Documented by: Propranolol HCl (Propranolol 10 Mg Tablet) 20 mg PO BID [facility] Last Admin: 08/15/20 07:46 Dose: 20 mg Documented by: Sodium Chloride (Sodium Chloride Flush 0.9% 10 Ml Syringe) 10 ml IVP PRN PRN PRN Reason: NEEDED PER PROVIDER ORDERS Sodium Chloride (Sodium Chloride Flush 0.9% 10 Ml Syringe) 10 ml IVP 0100,0900,1700 [facility] Last Admin: 08/15/20 10:15 Dose: Not Given Documented by: Acetaminophen [Tylenol] 650 mg PO Q6H PRN MDD 3000mg 07/28/20 Colchicine [Colcrys] 0.6 mg PO DAILY PRN 07/28/20 Lactulose 15 ml PO DAILY 07/28/20 Multivitamin 1 each PO DAILY 07/28/20 allopurinoL [Zyloprim] 100 mg PO DAILY 07/28/20 Lisinopril [Prinivil] 5 mg PO DAILY 08/14/20 Omeprazole Magnesium 40 mg PO DAILY 08/14/20 Ondansetron Odt [Zofran Odt] 4 mg SL Q8H PRN 02/18/21 Oxycodone HCl 5 - 10 mg PO Q6H PRN 08/14/20 Propranolol [Inderal] 20 mg PO BID 08/14/20 Objective - Vital Signs/Intake & Output Reviewed Vital Signs: Yes Vital Signs: Vital Signs x48h Temp Pulse Resp BP Pulse Ox 08/15/20 12:28 37 C 82 20 149/59 H 96 Intake & Output: Intake & Output 08/12/20 08/13/20 08/14/20 08/15/20 23:59 23:59 23:59 23:59 Intake Total 2150 2016.667 Output Total 1000 925 Balance 1150 1091.667 - Objective General Appearance: positive: No acute distress, Alert Eyes Bilateral: positive: Normal inspection, Conjunctivae nml ENT: positive: ENT inspection nml Neck: positive: Nml inspection Respiratory: positive: No respiratory distress. negative: Wheezes, Rales Cardiovascular: positive: Regular rate & rhythm, No murmur Abdomen: positive: Non-tender, No distention, Other (Blood is noted in his ostomy bag although this is a decreased amount compared to yesterday.). negative: Guarding, Rebound Skin: positive: Warm, Dry Extremities: positive: Full ROM, Pedal edema (+1 pitting edema in bilateral lower extremities) Neurologic/Psychiatric: negative: Disoriented to person, Disoriented to place - Lab Results Fish Bones: 08/15/20 13:45 08/15/20 07:26 Other Labs: Lab Results x24hrs 08/15/20 08/15/20 08/15/20 Range/Units 13:45 07:26 07:26 Hgb 7.3 L 7.5 L (14.0-18.0) g/dL Hct 24.8 L 24.8 L (42.0-52.0) % Sodium 136 (135-145) mmol/L Potassium 3.4 L (3.5-5.0) mmol/L Chloride 107 (101-111) mmol/L Carbon Dioxide 17 L (21-32) mmol/L Anion Gap 12.0 (6-13) BUN 34 H (6-20) mg/dL Creatinine 1.6 H (0.6-1.2) mg/dL Estimated GFR (MDRD) 46 L (>89) Glucose 143 H (70-100) mg/dL Calcium 8.3 L (8.5-10.3) mg/dL Iron (45-182) ug/dL TIBC (250-450) ug/dL % Saturation (20-50) % Transferrin (180-329) mg/dL Ferritin (23.9-336.2) ng/mL Total Bilirubin 1.3 H (0.2-1.0) mg/dL Direct Bilirubin 0.5 (0.1-0.5) mg/dL AST 62 H (10-42) IU/L ALT 30 (10-60) IU/L Alkaline Phosphatase 87 (42-121) IU/L Total Protein 7.3 (6.7-8.2) g/dL Albumin 2.9 L (3.2-5.5) g/dL Globulin 4.4 H (2.1-4.2) g/dL Vitamin B12 (180-914) pg/mL Folate (5.90 - >24.8) ng/mL Nasal Adenovirus (PCR) Nasal B. parapertussis DNA (PCR) Nasal Coronavir 229E PCR Nasal Coronavir HKU1 PCR Nasal Coronavir NL63 PCR Nasal Coronavir OC43 PCR Nasal Enterovir/Rhinovir PCR Nasal Influenza B PCR Nasal Influenza A PCR Nasal Parainfluen 1 PCR Nasal Parainfluen 2 PCR Nasal Parainfluen 3 PCR Nasal Parainfluen 4 PCR Nasal RSV (PCR) Nasal B.pertussis DNA PCR Nasal C.pneumoniae (PCR) Abe Human Metapneumo PCR Nasal M.pneumoniae (PCR) Nasal SARS-CoV-2 (PCR) Blood Type Blood Type Recheck Antibody Screen Crossmatch IS Only 08/14/20 08/14/20 08/14/20 Range/Units 22:40 15:26 15:26 Hgb 8.0 L (14.0-18.0) g/dL Hct 27.5 L (42.0-52.0) % Sodium (135-145) mmol/L Potassium (3.5-5.0) mmol/L Chloride (101-111) mmol/L Carbon Dioxide (21-32) mmol/L Anion Gap (6-13) BUN (6-20) mg/dL Creatinine (0.6-1.2) mg/dL Estimated GFR (MDRD) (>89) Glucose (70-100) mg/dL Calcium (8.5-10.3) mg/dL Iron 79 (45-182) ug/dL TIBC 641 H (250-450) ug/dL % Saturation 12 L (20-50) % Transferrin 458 H (180-329) mg/dL Ferritin 8.8 L (23.9-336.2) ng/mL Total Bilirubin (0.2-1.0) mg/dL Direct Bilirubin (0.1-0.5) mg/dL AST (10-42) IU/L ALT (10-60) IU/L Alkaline Phosphatase (42-121) IU/L Total Protein (6.7-8.2) g/dL Albumin (3.2-5.5) g/dL Globulin (2.1-4.2) g/dL Vitamin B12 767 (180-914) pg/mL Folate 47.00 (5.90 - >24.8) ng/mL Nasal Adenovirus (PCR) Nasal B. parapertussis DNA (PCR) Nasal Coronavir 229E PCR Nasal Coronavir HKU1 PCR Nasal Coronavir NL63 PCR Nasal Coronavir OC43 PCR Nasal Enterovir/Rhinovir PCR Nasal Influenza B PCR Nasal Influenza A PCR Nasal Parainfluen 1 PCR Nasal Parainfluen 2 PCR Nasal Parainfluen 3 PCR Nasal Parainfluen 4 PCR Nasal RSV (PCR) Nasal B.pertussis DNA PCR Nasal C.pneumoniae (PCR) Aeb Human Metapneumo PCR Nasal M.pneumoniae (PCR) Nasal SARS-CoV-2 (PCR) Blood Type Blood Type Recheck Antibody Screen Crossmatch IS Only 08/14/20 08/14/20 08/14/20 Range/Units 15:26 15:15 14:40 Hgb (14.0-18.0) g/dL Hct (42.0-52.0) % Sodium (135-145) mmol/L Potassium (3.5-5.0) mmol/L Chloride (101-111) mmol/L Carbon Dioxide (21-32) mmol/L Anion Gap (6-13) BUN (6-20) mg/dL Creatinine (0.6-1.2) mg/dL Estimated GFR (MDRD) (>89) Glucose (70-100) mg/dL Calcium (8.5-10.3) mg/dL Iron (45-182) ug/dL TIBC (250-450) ug/dL % Saturation (20-50) % Transferrin (180-329) mg/dL Ferritin (23.9-336.2) ng/mL Total Bilirubin (0.2-1.0) mg/dL Direct Bilirubin (0.1-0.5) mg/dL AST (10-42) IU/L ALT (10-60) IU/L Alkaline Phosphatase (42-121) IU/L Total Protein (6.7-8.2) g/dL Albumin (3.2-5.5) g/dL Globulin (2.1-4.2) g/dL Vitamin B12 (180-914) pg/mL Folate (5.90 - >24.8) ng/mL Nasal Adenovirus (PCR) NOT DETECTED Nasal B. parapertussis DNA (PCR) NOT DETECTED Nasal Coronavir 229E PCR NOT DETECTED Nasal Coronavir HKU1 PCR NOT DETECTED Nasal Coronavir NL63 PCR NOT DETECTED Nasal Coronavir OC43 PCR NOT DETECTED Nasal Enterovir/Rhinovir PCR NOT DETECTED Nasal Influenza B PCR NOT DETECTED Nasal Influenza A PCR NOT DETECTED Nasal Parainfluen 1 PCR NOT DETECTED Nasal Parainfluen 2 PCR NOT DETECTED Nasal Parainfluen 3 PCR NOT DETECTED Nasal Parainfluen 4 PCR NOT DETECTED Nasal RSV (PCR) NOT DETECTED Nasal B.pertussis DNA PCR NOT DETECTED Nasal C.pneumoniae (PCR) NOT DETECTED Abe Human Metapneumo PCR NOT DETECTED Nasal M.pneumoniae (PCR) NOT DETECTED Nasal SARS-CoV-2 (PCR) NOT DETECTED Blood Type A POSITIVE Blood Type Recheck A POSITIVE Antibody Screen NEGATIVE Crossmatch IS Only See Detail ABX Reporting Has patient been on IV antibiotics over the past 48 hours?: No Assessment/Plan - Problem List (1) Bleeding from colostomy stoma Impression: He was still having bleeding this morning from the ostomy. This has slowed down this afternoon and he was evaluated by the ostomy care nurse, Krystal, and at this point time the bleeding seems to have subsided. Given the drop in hemogl obin we will observe him overnight. General surgery is considering a colonoscopy if there is further evidence of bleeding. We will continue to trend his hemoglobin. (2) Anemia due to blood loss Impression: He did respond appropriately to transfusion yesterday but his hemoglobin continues to trend down.He still has a little bleeding from the ostomy but this appears improved. His iron studies are suggestive of iron deficiency anemia. Although his iron levels are normal, this is likely falsely elevated given he recently received 3 units of packed red blood cell at [facility]. We have started him on oral iron. We will monitor him overnight and trend his hemoglobin. We will likely transfuse him 1 more unit if it continues to trend downwards and we will look to discharge him tomorrow as long as his bleeding subsides. (3) Acute kidney injury Impression: This is improved with IV fluids. Given his lower extremity edema, will discontinue IV fluids and continue to observe his renal function. Suspect he may have some chronic kidney disease but is unclear given I do not have prior labs. We will continue to hold his lisinopril for the time being. We will likely hold lisinopril on discharge and he has an appointment with primary care provider next week and will ask for repeat labs then. (4) Liver cirrhosis Impression: Stable. I once again discussed the importance of alcohol cessation. We will ask social work to meet with the patient to discuss treatment options. We will continue thiamine and multivitamin. Qualifiers: Hepatic cirrhosis type: alcoholic cirrhosis (5) Thrombocytopenia Impression: Platelet count is slightly improved today at 113. This is likely secondary to his cirrhosis.
[2020-08-15] MEDS: THIAMINE 100 MG TABLET PO SCH (17:50)
[2020-08-15 22:08] LABS: HGB - HEMOGLOBIN 7.3 g/dL (14.0-18.0)
[2020-08-16 05:19] LABS: EOSINOPHILS # (AUTO) 0.2 10^3/uL (0.0-0.7); EOSINOPHILS % (AUTO) 6.7 %; HGB - HEMOGLOBIN 7.7 g/dL (14.0-18.0); LYMPHOCYTES # (AUTO) 0.7 10^3/uL (1.5-3.5); LYMPHOCYTES % (AUTO) 20.8 %; MEAN CORPUSCULAR HEMOGLOBIN 25.5 pg (27.0-31.0); MEAN CORPUSCULAR HGB CONC 28.7 g/dL (32.0-36.0); MEAN CORPUSCULAR VOLUME 88.7 fL (80.0-94.0); MONOCYTES # (AUTO) 0.5 10^3/uL (0.0-1.0); MONOCYTES % (AUTO) 14.4 %; NEUTROPHILS # (AUTO) 1.8 10^3/uL (1.5-6.6); NEUTROPHILS % (AUTO) 56.8 %; PLT - PLATELET COUNT 64 10^3/uL (130-450); RED BLOOD COUNT 3.02 10^6/uL (4.70-6.10); RED CELL DISTRIBUTION WIDTH 19.2 % (12.0-15.0); WHITE BLOOD COUNT 3.1 x10^3/uL (4.8-10.8)
[2020-08-16 05:27] LABS: CALCIUM 8.3 mg/dL (8.5-10.3); CREATININE 1.4 mg/dL (0.6-1.2)
[2020-08-16] MEDS: PANTOPRAZOLE 40 MG TABLET PO SCH (06:07)
--- NOTE | 2020-08-16 07:24 | Discharge Plan ---
Discharge Plan Problem Reviewed?: Yes Disposition: Home, Self Care Condition: Stable Prescriptions: Ferrous Sulfate [Feosol] 325 mg PO BIDWM #60 tab Diet: Regular Activity Restrictions: Activity as Tolerated Health Concerns: You were seen in the hospital because of bleeding from your ostomy. You had anemia because of this and needed to be transfused a unit of blood. Your blood counts have since remained stable and there is no further evidence of bleeding. Your iron studies show that you have iron deficiency this is likely due to the chronic bleeding. You were given a dose of IV iron and started on oral iron supplementation. This will be important to take as this will help your body make red blood cells. Plan of Treatment: It is important that you follow-up with your primary care doctor next week as scheduled and asked to have your labs rechecked including your blood counts and kidney function to ensure that they are stable. It is also important that you follow-up with your overedge machine operator for an outpatient colonoscopy. The surgeon did see you here and feels that if you need any surgery for your ostomy that this should be done at a higher level of care likely [facility]. It is recommended that your overedge machine operator refer you to [facility] to see a surgeon there for your ostomy. It is important that you stop drinking alcohol as you have already had evidence of liver disease. Care Goals: The goal is to stop your ostomy from bleeding. Assessment: The patient expressed understanding of the treatment plan. Additional Instructions or Follow Up instructions: Please follow-up with your primary care provider next week as scheduled and asked to have your labs checked including your kidney function as well as blood counts. Please follow-up with your overedge machine operator and ask to be referred to a surgeon at the [facility]. Please do return to the emergency department if you develop any signs of bleeding. No Smoking: If you smoke, Please STOP! Call for help. Follow-up with: Cristina Sifuentes MD [Provider Admit Priv/Credential] -
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
[2020-08-16 07:37] VITALS: BP 147/81
[2020-08-16] MEDS ORDERED: MULTIVITAMIN TABLET PO SCH (08:00)
[2020-08-16] MEDS ORDERED: IRON DEXTRAN 1,000 MG in SODIUM CHLORIDE 0.9% 250 ML IV ONE (08:30)
[2020-08-16] MEDS: allopurinoL 100 MG TABLET PO SCH (08:51)
[2020-08-16] MEDS: LACTULOSE 10 GM /15 ML UDC PO SCH (08:51)
[2020-08-16] MEDS: FERROUS SULFATE 325 MG TABLET PO SCH (08:51)
[2020-08-16] MEDS: SODIUM CHLORIDE FLUSH 0.9% 10 ML SYRINGE IVP SCH (08:52)
[2020-08-16] MEDS: THIAMINE 100 MG TABLET PO SCH (08:53)
[2020-08-16] MEDS: PROPRANOLOL 10 MG TABLET PO SCH (08:53)
== END 2020-08-16 10:52 | disposition home or self-care (01) ==
LOC: ED 13:39 → MS2 15:19
PROVIDERS: ADMIT Internal Medicine; ATTEND Internal Medicine
DX: K94.01 Colostomy hemorrhage (principal); D62 Acute posthemorrhagic anemia; N17.9 Acute kidney failure, unspecified; K70.30 Alcoholic cirrhosis of liver without ascites; D69.6 Thrombocytopenia, unspecified; Z90.49 Acquired absence of other specified parts of digestive tract; Z20.822 Contact with and (suspected) exposure to COVID-19; R09.81 Nasal congestion; F10.10 Alcohol abuse, uncomplicated; I10 Essential (primary) hypertension; E66.9 Obesity, unspecified; Z68.41 Body mass index [BMI] 40.0-44.9, adult; R60.0 Localized edema; Z87.891 Personal history of nicotine dependence
CPT/HCPCS: 0202U; 36415; 36430; 80048; 80053; 80076; 82607; 82728; 82746; 83540; 83690; 84466; 85014; 85018; 85025; 85610; 85730; 86850; 86900; 86901; 86920; 93970; 96365; 99284; 99285; A9270; G0378; J1750; J7120; P9016

== ENCOUNTER 2020-09-30 | Outpatient (CLI) | payer OTHER | END 2020-09-30 09:03 | disposition short-term general hospital (02) | CPT/HCPCS: A0425; A0426 ==

== ENCOUNTER 2020-09-30 | Outpatient (CLI) | payer OTHER | END 2020-09-30 02:33 | disposition critical access hospital (66) | CPT/HCPCS: A0425; A0429 ==

== ENCOUNTER 2020-09-30 02:52 | Emergency (ER) | payer OTHER ==
--- NOTE | 2020-09-30 03:27 | ED Physician Documentation ---
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 Patient says that 2-3 hours ago, while at home at rest, he had sudden onset bright red blood output into his colostomy bag. Denies injury; there was no apparent inciting event. EMS says during their evaluation and transport of patient, the colostomy bag filled completely twice and then filled half of the bag en route. Patient says he only has mild abdominal discomfort, generalized (does not offer this as part of HPI until asked specifically if he has abdominal pain). Patient says he had the colostomy placed in October of 2019 in [facility] due to an intra-abdominal infection, though he is not certain as to what the infection was. Review of Systems Constitutional: reports: Sweats. denies: Fever, Chills Eyes: reports: Reviewed and negative Ears: reports: Reviewed and negative Nose: reports: Reviewed and negative Throat: reports: Sore throat Cardiac: reports: Reviewed and negative Respiratory: reports: Reviewed and negative GI: reports: Abdominal Pain (mild), Abdominal Swelling, Bloody / black stool. denies: Nausea, Vomiting, Constipation, Diarrhea, Hematemesis : denies: Dysuria Skin: reports: Reviewed and negative Musculoskeletal: reports: Reviewed and negative Neurologic: reports: Generalized weakness. denies: Focal weakness, Numbness PD PAST MEDICAL HISTORY - Past Medical History Past Medical History: Yes Cardiovascular: Hypertension Neuro: Migraines, Peripheral neuropathy GI: Esophageal varices, Cirrhosis Psych: Depression, Anxiety Musculoskeletal: Osteoarthritis, Gout - Past Surgical History Past Surgical History: Yes General: Bowel surgery, Colonoscopy, EGD - Present Medications Home Medications: Ambulatory Orders Medication Instructions Recorded Confirmed Acetaminophen [Tylenol] 650 mg PO Q6H PRN MDD 3000mg 07/28/20 08/14/20 Colchicine [Colcrys] 0.6 mg PO DAILY PRN 07/28/20 08/14/20 Lactulose 15 ml PO DAILY 07/28/20 08/14/20 Multivitamin 1 each PO DAILY 07/28/20 08/14/20 allopurinoL [Zyloprim] 100 mg PO DAILY 07/28/20 08/14/20 Lisinopril [Prinivil] 5 mg PO DAILY 08/14/20 08/14/20 Omeprazole Magnesium 40 mg PO DAILY 08/14/20 08/14/20 Ondansetron Odt [Zofran Odt] 4 mg SL Q8H PRN 08/14/20 08/14/20 Oxycodone HCl 5 - 10 mg PO Q6H PRN 08/14/20 08/14/20 Propranolol [Inderal] 20 mg PO BID 08/14/20 08/14/20 Ferrous Sulfate [Feosol] 325 mg PO BIDWM #60 tab 08/16/20 - Allergies Allergies/Adverse Reactions: Allergies Allergy/AdvReac Type Severity Reaction Status Date / Time No Known Drug Allergies Allergy Verified 09/30/20 08:44 - Social History Does the pt smoke?: No Smoking Status: Never smoker Does the pt drink ETOH?: Yes Does the pt have substance abuse?: No - Immunizations Immunizations are current?: Yes PD ED PE NORMAL - Vitals Vital signs reviewed: Yes - General General: Other (obese) - HEENT HEENT: PERRL, EOMI - Neck Neck: Supple, no meningeal sign - Cardiac Cardiac: No murmur - Respiratory Respiratory: No respiratory distress, Clear bilaterally - Abdomen Abdomen: Soft - Extremities Extremities: No edema - Neuro Neuro: Alert and oriented X 3 Eye Opening: Spontaneous Motor: Obeys Commands Verbal: Oriented GCS Score: 15 PD ED PE EXPANDED - General General: Other (pale, tachypneic) - Cardiac Cardiac: Tachy, Regular Rhythm - Abdomen Abdomen: Distended, Other (ostomy bag has approximately 100 cc bright red blood as well as loose brown stool). No: Tender to palpation - Derm Derm: Pale Results - Vitals Vitals: Vital Signs - 24 hr 09/30/20 09/30/20 09/30/20 03:18 04:38 05:16 Temperature 36.1 C L 36.7 C Heart Rate 94 101 H 100 Respiratory 22 18 20 Rate Blood Pressure 88/45 L 120/44 L 163/67 H O2 Saturation 100 09/30/20 09/30/20 09/30/20 05:24 05:31 05:37 Temperature 36.4 C L 36.5 C 36.6 C Heart Rate 100 100 100 Respiratory 20 20 20 Rate Blood Pressure 151/62 H 151/62 H 144/66 H O2 Saturation 100 09/30/20 09/30/20 09/30/20 06:00 06:11 06:30 Temperature 36.6 C 36.2 C L Heart Rate 101 H 99 102 H Respiratory 31 H 19 27 H Rate Blood Pressure 121/65 129/82 H 121/51 L O2 Saturation 93 96 09/30/20 09/30/20 09/30/20 07:00 07:30 07:37 Temperature 36.4 C L 36.6 C 36.6 C Heart Rate 104 H 108 H 104 H Respiratory 27 H 18 20 Rate Blood Pressure 127/50 L 128/51 L 128/51 L O2 Saturation 98 09/30/20 09/30/20 09/30/20 07:44 07:54 08:05 Temperature 36.2 C L 36.2 C L 37.3 C Heart Rate 103 H 105 H 105 H Respiratory 20 19 32 H Rate Blood Pressure 135/71 H 145/86 H 149/82 H O2 Saturation 97 09/30/20 08:35 Temperature 36.5 C Heart Rate 105 H Respiratory 28 H Rate Blood Pressure 163/74 H O2 Saturation Oxygen O2 Source Room air - Labs Labs: Laboratory Tests 09/30/20 09/30/20 09/30/20 03:54 03:54 03:54 WBC 4.7 L RBC 1.24 L Hgb 4.0 L* Hct 14.8 L* MCV 119.4 H MCH 32.3 H MCHC 27.0 L RDW 19.4 H Plt Count 101 L MPV 9.7 Neut # (Auto) 2.8 Lymph # (Auto) 0.9 L Cassia # (Auto) 0.8 Eos # (Auto) 0.2 Baso # (Auto) 0.0 Absolute Nucleated RBC 0.11 Nucleated RBC % 2.3 WBC Morphology NORMAL APPEARANCE Platelet Estimate DECREASED (<130,000) Platelet Morphology NORMAL APPEARANCE RBC Morph Micro Appear 2+ HYPOCHROMASIA PT 14.2 H INR 1.3 H APTT 25.2 Bld Gas Analysis Time Sample Site ABG pH ABG pCO2 ABG pO2 ABG HCO3 ABG Total CO2 ABG O2 Saturation ABG Base Excess Jeffrey Test Room Air Sodium 139 Potassium 3.6 Chloride 114 H Carbon Dioxide 10 L* Anion Gap 15.0 H BUN 38 H Creatinine 2.1 H Estimated GFR (MDRD) 34 L Glucose 236 H Calcium 7.8 L Total Bilirubin 1.0 AST 72 H ALT 27 Alkaline Phosphatase 96 Total Protein 6.2 L Albumin 2.3 L Globulin 3.9 Albumin/Globulin Ratio 0.6 L Lipase 109 H Nasal Adenovirus (PCR) Nasal B. parapertussis DNA (PCR) Nasal Coronavir 229E PCR Nasal Coronavir HKU1 PCR Nasal Coronavir NL63 PCR Nasal Coronavir OC43 PCR Nasal Enterovir/Rhinovir PCR Nasal Influenza B PCR Nasal Influenza A PCR Nasal Parainfluen 1 PCR Nasal Parainfluen 2 PCR Nasal Parainfluen 3 PCR Nasal Parainfluen 4 PCR Nasal RSV (PCR) Nasal B.pertussis DNA PCR Nasal C.pneumoniae (PCR) Abe Human Metapneumo PCR Nasal M.pneumoniae (PCR) Nasal SARS-CoV-2 (PCR) Ethyl Alcohol Blood Type Antibody Screen Crossmatch IS Only 09/30/20 09/30/20 09/30/20 03:54 03:54 05:41 WBC RBC Hgb Hct MCV MCH MCHC RDW Plt Count MPV Neut # (Auto) Lymph # (Auto) Cassia # (Auto) Eos # (Auto) Baso # (Auto) Absolute Nucleated RBC Nucleated RBC % WBC Morphology Platelet Estimate Platelet Morphology RBC Morph Micro Appear PT INR APTT Bld Gas Analysis Time Sample Site ABG pH ABG pCO2 ABG pO2 ABG HCO3 ABG Total CO2 ABG O2 Saturation ABG Base Excess Jeffrey Test Room Air Sodium Potassium Chloride Carbon Dioxide Anion Gap BUN Creatinine Estimated GFR (MDRD) Glucose Calcium Total Bilirubin AST ALT Alkaline Phosphatase Total Protein Albumin Globulin Albumin/Globulin Ratio Lipase Nasal Adenovirus (PCR) NOT DETECTED Nasal B. parapertussis DNA (PCR) NOT DETECTED Nasal Coronavir 229E PCR NOT DETECTED Nasal Coronavir HKU1 PCR NOT DETECTED Nasal Coronavir NL63 PCR NOT DETECTED Nasal Coronavir OC43 PCR NOT DETECTED Nasal Enterovir/Rhinovir PCR NOT DETECTED Nasal Influenza B PCR NOT DETECTED Nasal Influenza A PCR NOT DETECTED Nasal Parainfluen 1 PCR NOT DETECTED Nasal Parainfluen 2 PCR NOT DETECTED Nasal Parainfluen 3 PCR NOT DETECTED Nasal Parainfluen 4 PCR NOT DETECTED Nasal RSV (PCR) NOT DETECTED Nasal B.pertussis DNA PCR NOT DETECTED Nasal C.pneumoniae (PCR) NOT DETECTED Abe Human Metapneumo PCR NOT DETECTED Nasal M.pneumoniae (PCR) NOT DETECTED Nasal SARS-CoV-2 (PCR) NOT DETECTED Ethyl Alcohol 184.0 Blood Type A POSITIVE Antibody Screen NEGATIVE Crossmatch IS Only See Detail 09/30/20 07:20 WBC RBC Hgb Hct MCV MCH MCHC RDW Plt Count MPV Neut # (Auto) Lymph # (Auto) Cassia # (Auto) Eos # (Auto) Baso # (Auto) Absolute Nucleated RBC Nucleated RBC % WBC Morphology Platelet Estimate Platelet Morphology RBC Morph Micro Appear PT INR APTT Bld Gas Analysis Time 0730 Sample Site LEFT RADIAL ABG pH 7.33 L ABG pCO2 21 L* ABG pO2 79 L ABG HCO3 11.0 L ABG Total CO2 11.6 L* ABG O2 Saturation 93 L ABG Base Excess -13.8 L Jeffrey Test POSITIVE Room Air YES Sodium Potassium Chloride Carbon Dioxide Anion Gap BUN Creatinine Estimated GFR (MDRD) Glucose Calcium Total Bilirubin AST ALT Alkaline Phosphatase Total Protein Albumin Globulin Albumin/Globulin Ratio Lipase Nasal Adenovirus (PCR) Nasal B. parapertussis DNA (PCR) Nasal Coronavir 229E PCR Nasal Coronavir HKU1 PCR Nasal Coronavir NL63 PCR Nasal Coronavir OC43 PCR Nasal Enterovir/Rhinovir PCR Nasal Influenza B PCR Nasal Influenza A PCR Nasal Parainfluen 1 PCR Nasal Parainfluen 2 PCR Nasal Parainfluen 3 PCR Nasal Parainfluen 4 PCR Nasal RSV (PCR) Nasal B.pertussis DNA PCR Nasal C.pneumoniae (PCR) Abe Human Metapneumo PCR Nasal M.pneumoniae (PCR) Nasal SARS-CoV-2 (PCR) Ethyl Alcohol Blood Type Antibody Screen Crossmatch IS Only PD MEDICAL DECISION MAKING - ED course Complexity details: reviewed old records, reviewed results, re-evaluated patient, considered differential, d/w patient ED course: Patient was inpatient at [facility] in July for same c/o. At that time he was transfused PRBC and the notes from that stay indicate he had also been inpatient at [facility] a few weeks prior, again for same problem and was transfused PRBC at that time. Patient says he had EGD at a few weeks ago (mid-August); he says he wasn't told anything about the results. When I ask if he has varices, he says he has been diagnosed with varices on a previous endoscopy. On tonight's blood tests, he has critical h/h (4.0/14.3). Two units PRBC transfused (second unit is early in being transfused at time of transfer). In reviewing previous inpatient stay, the note from the surgical consult indicated that patient would likely benefit from higher level of care if he has recurrent bleeding from the stoma site, specifically at [facility] I discussed the case with Dr. Quintanilla (GI at [facility]), agrees patient is appropriate for transfer, recommends I discuss the case with the biomedical equipment tech. I discussed the case with Dr. Simmons, biomedical equipment tech at [facility] who accept transfer of patient. She recommends ceftriaxone for SBP prophylaxis (patient tells me he does not know if he has ascites but doesn't think so), IV protonix, and IV octreotide; these medications are all given prior to transfer. On multiple reevaluations, patient appeared increasingly comfortable with improving skin color and decreasing tachypnea. He did not have any further blood output into the colostomy bag since first arriving in ED. Departure - Departure Disposition: 02 Transfer Acute Care Hosp Clinical Impression: Upper GI hemorrhage, Severe anemia Condition: Serious Discharge Date/Time: 09/30/20 09:02
[2020-09-30 04:05] LABS: BASOPHILS % (AUTO) 0.4 %; EOSINOPHILS # (AUTO) 0.2 10^3/uL (0.0-0.7); EOSINOPHILS % (AUTO) 4.4 %; LYMPHOCYTES # (AUTO) 0.9 10^3/uL (1.5-3.5); LYMPHOCYTES % (AUTO) 18.4 %; MEAN CORPUSCULAR HEMOGLOBIN 32.3 pg (27.0-31.0); MEAN CORPUSCULAR VOLUME 119.4 fL (80.0-94.0); MEAN PLATELET VOLUME 9.7 fL (7.4-11.4); MONOCYTES # (AUTO) 0.8 10^3/uL (0.0-1.0); MONOCYTES % (AUTO) 16.9 %; NEUTROPHILS # (AUTO) 2.8 10^3/uL (1.5-6.6); NEUTROPHILS % (AUTO) 58.4 %; NRBC ABSOLUTE COUNT (AUTO) 0.11 x10^3/uL; NUCLEATED RED BLOOD CELLS AUTO 2.3 /100WBC; PLT - PLATELET COUNT 101 10^3/uL (130-450); RED BLOOD COUNT 1.24 10^6/uL (4.70-6.10); RED CELL DISTRIBUTION WIDTH 19.4 % (12.0-15.0); WHITE BLOOD COUNT 4.7 x10^3/uL (4.8-10.8)
[2020-09-30 04:07] LABS: HCT - HEMATOCRIT 14.8 % (42.0-52.0)
[2020-09-30 04:09] LABS: INR 1.3 (0.8-1.2); PT - PROTHROMBIN TIME 14.2 secs (9.9-12.6)
[2020-09-30 04:16] LABS: PARTIAL THROMBOPLASTIN TIME 25.2 secs (24.9-33.3)
[2020-09-30 04:17] LABS: ALBUMIN 2.3 g/dL (3.2-5.5); ALBUMIN/GLOBULIN RATIO 0.6 (1.0-2.2); CALCIUM 7.8 mg/dL (8.5-10.3); CREATININE 2.1 mg/dL (0.6-1.2); POTASSIUM 3.6 mmol/L (3.5-5.0); TOTAL PROTEIN 6.2 g/dL (6.7-8.2)
[2020-09-30 04:38] LABS: PLATELET ESTIMATE, MANUAL DECREASED (<130,000) (NORMAL); PLATELET MORPHOLOGY NORMAL APPEARANCE (NORMAL); WBC MORPHOLOGY (MULTIPLE) NORMAL APPEARANCE (NORMAL)
[2020-09-30] MEDS ORDERED: cefTRIAXone 1 GM VIAL IVP STA (06:14)
[2020-09-30] MEDS ORDERED: OCTREOTIDE 500 MCG in SODIUM CHLORIDE 0.9% 100ML 95 ML IV STA (06:14)
[2020-09-30] MEDS ORDERED: PANTOPRAZOLE 40 MG VIAL IVP STA (06:14)
[2020-09-30] MEDS ORDERED: OCTREOTIDE 100 MCG/ML VIAL ONE (06:27)
[2020-09-30 06:37] LABS: B. PARAPERTUSSIS- RESP PCR PAN NOT DETECTED; B. PERTUSSIS- RESP PCR PANEL NOT DETECTED; C. PNEUMONIAE- RESP PCR PANEL NOT DETECTED; CORONAVIRUS 229E-RESP PCR NOT DETECTED; CORONAVIRUS HKU1-RESP PCR NOT DETECTED; CORONAVIRUS NL63-RESP PCR NOT DETECTED; CORONAVIRUS OC43-RESP PCR NOT DETECTED; HUMAN METAPNEUMOVIRUS NOT DETECTED; INFLUENZA A- RESP PCR PANEL NOT DETECTED; INFLUENZA B - RESP PCR PANEL NOT DETECTED; M. PNEUMONIAE- RESP PCR PANEL NOT DETECTED; PARAINFLUENZA VIRUS 1 NOT DETECTED; PARAINFLUENZA VIRUS 2 NOT DETECTED; PARAINFLUENZA VIRUS 3 NOT DETECTED; PARAINFLUENZA VIRUS 4 NOT DETECTED; RHINOVIRUS/ENTEROVIRUS NOT DETECTED; RSV- RESP PCR PANEL NOT DETECTED; SARS-CoV-2 -RESP PCR PANEL NOT DETECTED
[2020-09-30 07:32] LABS: ABG PH 7.33 (7.35-7.45)
[2020-09-30 07:33] LABS: ABG BASE EXCESS -13.8 mmol/L (-2.0-3.0); ABG OXYGEN SATURATION 93 % (94-98); ABG PO2 79 mmHg (80-100); ALLEN TEST POSITIVE
[2020-09-30 07:37] LABS: ABG PCO2 21 mmHg (34-45)
[2020-09-30 07:38] LABS: ABG TCO2 11.6 MMOL/L (21.0-29.0)
[2020-09-30 08:36] VITALS: BP 163/74
--- OUTSIDE RECORDS SUMMARY | 2020-10-01 03:19 | EXTERNAL MEDICAL SUMMARY RPT | Continuity of Care Document ---
:1970 Demographics Phone Unavailable Preferred Language Portuguese Marital Status Unknown Taoist Affiliation Unknown Race Unknown Ethnic Group Unknown Author Organization [facility] Address [address] [phone] Phone Care Team Providers Name Role Phone Clerc Unavailable Unavailable Problems date description facility [id number] Chronic kidney disease, unspecified [facility] 20200723 Colostomy hemorrhage [facility] 20200723 Colostomy status [facility] 20200723 Gastrointestinal hemorrhage, [facility] unspecified 20200723 Other specified anemias [facility] 20200723 Other specified diabetes mellitus with [facility] diabetic chronic kidn 20200723 Personal history of other diseases of [facility] male genital organs 20200723 Thrombocytopenia, unspecified [facility] 20200723 Unspecified cirrhosis of liver [facility] [id number] Hematochezia [facility] [id number] Unspecified kidney failure [facility] [phone] Contact with and (suspected) exposure [facility] to COVID-19 [id number] 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) Medications date description facility 20200723 Oxycodone Hydrochloride 5 MG Oral Table t [facility] [id number] Lactulose 667 MG/ML Oral Solution [facility] [id number] Amlodipine 5 MG Oral [facility] 20200910 Propranolol Hydrochloride 20 MG Oral Ta [facility] Procedures date description facility [id number] Diagnosis [facility] date description facility [id number] Finding [facility] date description facility [id number] General [facility] date description facility [id number] [facility] date description facility [id number] [facility] date description facility [id number] [facility] date description facility [id number] [facility] Vital Signs date measurement value source 20200723 BMI 38.7 kg/m2 20200723 BP_diastolic 69 mm[Hg] 20200723 BP_systolic 155 mm[Hg] 20200723 heart_rate 76 /min 20200723 height_metric 167.64 cm 20200723 height_standard 66 in 20200723 respiration_rate 14 /min 20200723 temperature_metric 37.22 C 20200723 temperature_standard 99 F 20200723 weight_metric 104.5 kg 20200723 weight_standard 230.38 lb date measurement value source 20200724 BP_diastolic 76 mm[Hg] 20200724 BP_systolic 158 mm[Hg] 20200724 heart_rate 69 /min 20200724 respiration_rate 17 /min 20200724 temperature_metric 36.5 C 20200724 temperature_standard 97.7 F 20200724 weight_metric 105.6 kg 20200724 weight_standard 232.81 lb date measurement value source 20200805 BMI 38.7 kg/m2 20200805 BP_diastolic 95 mm[Hg] 20200805 BP_systolic 192 mm[Hg] 20200805 heart_rate 74 /min 20200805 height_metric 167.64 cm 20200805 height_standard 66 in 20200805 respiration_rate 16 /min 20200805 temperature_metric 36.61 C 20200805 temperature_standard 97.9 F 20200805 weight_metric 49.38 kg 20200805 weight_standard 108.86 lb date measurement value source 20200910 BMI 38.7 kg/m2 20200910 BP_diastolic 69 mm[Hg] 20200910 BP_systolic 129 mm[Hg] 20200910 heart_rate 79 /min 20200910 height_metric 167.64 cm 20200910 height_standard 66 in 20200910 respiration_rate 20 /min 20200910 temperature_metric 37 C 20200910 temperature_standard 98.6 F 20200910 weight_metric 49.38 kg 20200910 weight_standard 108.86 lb date measurement value source 20200911 BMI 38.7 kg/m2 [id number] BP_diastolic 68 mm[Hg] 57561895 BP_systolic 129 mm[Hg] 79083297 heart_rate 85 /min 20200911 height_metric 167.64 cm 46241008 height_standard 66 in 20200911 respiration_rate 16 /min [id number] temperature_metric 36.17 C 20200911 temperature_standard 97.1 F 20200911 weight_metric 49.38 kg [id number] weight_standard 108.86 lb Social History date description facility [id number]
== END 2020-09-30 09:02 | disposition short-term general hospital (02) ==
LOC: EDUNIT# → EDBD → ED 02:52
DX: K92.2 Gastrointestinal hemorrhage, unspecified (principal); D64.9 Anemia, unspecified; R06.82 Tachypnea, not elsewhere classified; Z93.3 Colostomy status; Z20.822 Contact with and (suspected) exposure to COVID-19
CPT/HCPCS: 0202U; 36415; 36430; 36600; 80053; 80320; 82803; 83690; 85025; 85610; 85730; 86850; 86900; 86901; 86920; 96374; 96375; 99284; 99285; J2354; P9016

== ENCOUNTER 2021-04-03 09:07 | Outpatient (CLI) | payer OTHER | END 2021-04-03 09:08 | disposition short-term general hospital (02) | LOC: EMS 09:07 | DX: R06.03 Acute respiratory distress (principal); R50.9 Fever, unspecified; R00.0 Tachycardia, unspecified | CPT/HCPCS: A0425; A0427 ==

== ENCOUNTER 2021-04-19 23:06 | Outpatient (CLI) | payer OTHER | END 2021-04-19 23:07 | disposition critical access hospital (66) | LOC: EMS 23:06 | DX: K94.01 Colostomy hemorrhage (principal) | CPT/HCPCS: A0425; A0429 ==

== ENCOUNTER 2021-04-19 23:42 | Observation (INO) | payer OTHER ==
[2021-04-20] MEDS ORDERED: SILVER NITRATE APPLICATOR TOP STA ×3 (00:09→00:11)
[2021-04-20 00:29] LABS: BASOPHILS # (AUTO) 0.1 10^3/uL (0.0-0.1); BASOPHILS % (AUTO) 0.6 %; EOSINOPHILS # (AUTO) 0.2 10^3/uL (0.0-0.7); EOSINOPHILS % (AUTO) 1.9 %; HCT - HEMATOCRIT 28.3 % (42.0-52.0); HGB - HEMOGLOBIN 8.3 g/dL (14.0-18.0); LYMPHOCYTES # (AUTO) 0.5 10^3/uL (1.5-3.5); LYMPHOCYTES % (AUTO) 5.6 %; MEAN CORPUSCULAR HGB CONC 29.3 g/dL (32.0-36.0); MEAN CORPUSCULAR VOLUME 105.6 fL (80.0-94.0); MEAN PLATELET VOLUME 8.7 fL (7.4-11.4); MONOCYTES # (AUTO) 0.7 10^3/uL (0.0-1.0); MONOCYTES % (AUTO) 8.8 %; NEUTROPHILS # (AUTO) 6.7 10^3/uL (1.5-6.6); NEUTROPHILS % (AUTO) 82.7 %; PLT - PLATELET COUNT 175 10^3/uL (130-450); RED BLOOD COUNT 2.68 10^6/uL (4.70-6.10); RED CELL DISTRIBUTION WIDTH 23.6 % (12.0-15.0); WHITE BLOOD COUNT 8.1 x10^3/uL (4.8-10.8)
[2021-04-20 00:30] LABS: SLIDE REVIEW? Indicated
[2021-04-20 00:35] LABS: INR 1.7 (0.8-1.2)
[2021-04-20 00:42] LABS: PARTIAL THROMBOPLASTIN TIME 36.6 secs (24.9-33.3)
[2021-04-20] MEDS ORDERED: TRANEXAMIC ACID 1,000 MG/10 ML VIAL NAS STA (00:44)
[2021-04-20 00:45] LABS: ALBUMIN 2.1 g/dL (3.2-5.5); ALBUMIN/GLOBULIN RATIO 0.4 (1.0-2.2); BILIRUBIN,TOTAL 11.6 mg/dL (0.2-1.0); CALCIUM 8.5 mg/dL (8.5-10.3); CREATININE 1.3 mg/dL (0.6-1.2); TOTAL PROTEIN 7.6 g/dL (6.7-8.2)
[2021-04-20 00:46] LABS: PLATELET MORPHOLOGY NORMAL APPEARANCE (NORMAL); RBC MORPHOLOGY (MULTIPLE) 1+ ANISOCYTOSIS (NORMAL)
[2021-04-20 00:47] LABS: PLATELET ESTIMATE, MANUAL NORMAL (130-450,000) (NORMAL); WBC MORPHOLOGY (MULTIPLE) NORMAL APPEARANCE (NORMAL)
--- NOTE | 2021-04-20 01:00 | ED Physician Documentation ---
History of Present Illness - Stated complaint Stated Complaint: COLOSTOMY BAG ISSUES - Chief complaint Chief Complaint: Abd Pain - History obtained from History obtained from: Patient - Additonal information Additional information: 51yM with pmh esophageal varices, cirrhosis, ostomy in [place] in October 2019 for "abdminal infection" p/w large volume sudden output of blood into ostomy bag starting at 10:30pm tonight. patient states he emptied a full bag 4 times prior to arrival. estimated bag volume is 500cc. Bag was emptied again on arrival and contained 200cc bright red blood. patient c/o mild dizziness but otherwise is asymptomatic. Patient notes he was hospitalized for 2weeks at [facility] for pneumonia and had transfusions there. He also was getting subQ heparin for DVT prophylaxis and states they used a different ostomy bag there from the one he uses at home and it irritated the ostomy, causing some abrasions along the sides. He came here today because he sees YOLANDA Le at wound care and really likes the care he gets there. Review of Systems Ten Systems: 10 systems reviewed and negative Constitutional: denies: Fever, Chills Cardiac: denies: Chest pain / pressure Respiratory: reports: Dyspnea GI: denies: Abdominal Pain, Nausea Skin: reports: Other (ostomy site bleeding) Neurologic: reports: Other (dizzy) PD PAST MEDICAL HISTORY - Past Medical History Past Medical History: Yes Cardiovascular: Hypertension Neuro: Migraines, Peripheral neuropathy GI: Esophageal varices, Cirrhosis Psych: Depression, Anxiety Musculoskeletal: Osteoarthritis, Gout - Past Surgical History Past Surgical History: Yes General: Bowel surgery, Colonoscopy, EGD - Present Medications Home Medications: Ambulatory Orders Medication Instructions Recorded Confirmed Acetaminophen [Tylenol] 650 mg PO Q6H PRN MDD 3000mg 07/28/20 04/20/21 Colchicine [Colcrys] 0.6 mg PO DAILY PRN 07/28/20 04/20/21 Lactulose 15 ml PO DAILY 07/28/20 04/20/21 Multivitamin 1 each PO DAILY 07/28/20 04/20/21 allopurinoL [Zyloprim] 100 mg PO DAILY 07/28/20 04/20/21 Omeprazole Magnesium 40 mg PO DAILY 08/14/20 04/20/21 Ondansetron Odt [Zofran Odt] 4 mg SL Q8H PRN 08/14/20 04/20/21 Oxycodone HCl 5 - 10 mg PO Q6H PRN 08/14/20 04/20/21 Propranolol [Inderal] 20 mg PO BID 08/14/20 04/20/21 lisinopriL [Prinivil] 5 mg PO DAILY 08/14/20 04/20/21 Ferrous Sulfate [Feosol] 325 mg PO BIDWM #60 tab 08/16/20 04/20/21 FLUoxetine [PROzac] 10 mg PO DAILY 04/20/21 04/20/21 Furosemide [Lasix] 40 mg PO DAILY 04/20/21 04/20/21 - Allergies Allergies/Adverse Reactions: Allergies Allergy/AdvReac Type Severity Reaction Status Date / Time No Known Drug Allergies Allergy Verified 04/19/21 23:50 - Social History Does the pt smoke?: No Smoking Status: Never smoker Does the pt drink ETOH?: Yes Does the pt have substance abuse?: No - Immunizations Immunizations are current?: Yes PD ED PE NORMAL - Vitals Vital signs reviewed: Yes - General General: Alert and oriented X 3, No acute distress, Well developed/nourished - HEENT HEENT: Atraumatic, PERRL, EOMI - Neck Neck: Supple, no meningeal sign - Cardiac Cardiac: RRR - Respiratory Respiratory: No respiratory distress, Clear bilaterally, Other (mildly tachypneic) - Abdomen Abdomen: Non tender, Non distended, Other (ostomy ASHLEIGH with yellow/brown stool. active capillary arterial bleed to 4 oclock possition, stopped with direct prressure and lido with epi 2cc) - Derm Derm: Normal color, Warm and dry - Extremities Extremities: No deformity - Neuro Neuro: Alert and oriented X 3 - Psych Psych: Normal mood, Normal affect Results - Vitals Vitals: Vital Signs - 24 hr 04/19/21 04/19/21 04/20/21 23:50 23:53 00:11 Temperature 36.6 C 36.6 C Heart Rate 99 99 97 Respiratory 20 20 24 Rate Blood Pressure 142/85 H 142/85 H 152/108 H O2 Saturation 95 95 95 04/20/21 04/20/21 04/20/21 00:41 00:42 01:00 Temperature Heart Rate 95 94 Respiratory 27 H 22 30 H Rate Blood Pressure 153/76 H 147/81 H O2 Saturation 88 L 97 96 Oxygen O2 Source Nasal cannula - Labs Labs: Laboratory Tests 04/20/21 04/20/21 04/20/21 00:20 00:20 00:20 WBC 8.1 RBC 2.68 L Hgb 8.3 L Hct 28.3 L MCV 105.6 H MCH 31.0 MCHC 29.3 L RDW 23.6 H Plt Count 175 MPV 8.7 Neut # (Auto) 6.7 H Lymph # (Auto) 0.5 L Miller # (Auto) 0.7 Eos # (Auto) 0.2 Baso # (Auto) 0.1 Absolute Nucleated RBC 0.00 Nucleated RBC % 0.0 Manual Slide Review Indicated WBC Morphology NORMAL APPEARANCE Platelet Estimate NORMAL (130-450,000) Platelet Morphology NORMAL APPEARANCE RBC Morph Micro Appear 1+ ANISOCYTOSIS PT 19.0 H INR 1.7 H APTT 36.6 H Sodium 138 Potassium 4.0 Chloride 105 Carbon Dioxide 22 Anion Gap 11.0 BUN 24 H Creatinine 1.3 H Estimated GFR (MDRD) 58 L Glucose 110 H Calcium 8.5 Total Bilirubin 11.6 H AST 154 H ALT 40 Alkaline Phosphatase 245 H Total Protein 7.6 Albumin 2.1 L Globulin 5.5 H Albumin/Globulin Ratio 0.4 L Lipase 53 H Blood Type Antibody Screen 04/20/21 00:20 WBC RBC Hgb Hct MCV MCH MCHC RDW Plt Count MPV Neut # (Auto) Lymph # (Auto) Miller # (Auto) Eos # (Auto) Baso # (Auto) Absolute Nucleated RBC Nucleated RBC % Manual Slide Review WBC Morphology Platelet Estimate Platelet Morphology RBC Morph Micro Appear PT INR APTT Sodium Potassium Chloride Carbon Dioxide Anion Gap BUN Creatinine Estimated GFR (MDRD) Glucose Calcium Total Bilirubin AST ALT Alkaline Phosphatase Total Protein Albumin Globulin Albumin/Globulin Ratio Lipase Blood Type A POSITIVE Antibody Screen NEGATIVE Procedures - General procedure General procedure: 4 oclock position of ostomy site with arteriolar bleeding. direct pressure applied and lidocaine with epi injected with resolution of bleed. silver nitrate applied to site. txa applied topically. EBL 100cc PD MEDICAL DECISION MAKING - ED course ED course: Evaluated ostomy and bleeding is coming from asmall arterial bleed at about 4 oclock position. Ostomy exam brownish yellow stool. Bleeding stopped with direct pressure and lidocaine with epi. silver nitrate applied topically and txa dressing placed. Patient now c/o worsening lightheadedness, mild dyspnea, and had further bleeding of 100c since hb was initially drawn (though now hemostatic) therefore we will initiate blood transfusion for symptomatic anemia. d/w Dr. Humphrey and he requested we admit to medicine for blood transfusion and monitoring for further bleeding and he can consult as needed. d/w Dr Venegas for admission Departure - Departure Disposition: ED Place in Observation Clinical Impression: Anemia, Lightheadedness, Shortness of breath, Complication of ostomy Condition: Stable
[2021-04-20] MEDS ORDERED: NON FORMULARY MED (Oxycodone Hcl [Oxycodone Hcl] 10 MG Tablet) PO PRN (01:44)
[2021-04-20] MEDS ORDERED: SODIUM CHLORIDE FLUSH 0.9% 10 ML SYRINGE IVP PRN (01:46)
--- NOTE | 2021-04-20 02:09 | HISTORY & PHYSICAL EXAMINATION ---
Chief Complaint - Chief Complaint Chief Complaint: Bleeding from colostomy site History of Present Illness - Admitted From Admitted From:: ED - History Obtained From History obtained from: ED provider and the patient - History of Present Illness HPI Comment/Other: This is a 51-year-old male, boen in [facility], with a history of colostomy placed 1 and 1/2 years ago, while he lived in [facility], done for gangrenous bowel. He has had trouble with recurrent bleeding from the colostomy stoma site, and was admitted here 8 mos ago with this. At 10:30 PM today the patient noticed ble eding in his colostomy bag and he emptied his colostomy bag 4 times, each time it was filled with blood. He presented to the ED and had complaints was of lightheadedness and Shortness of breath. The ED provider examined the ostomy stoma and noted an area of active bleeding from a small arteriole which was managed with injection of lidocaine with epi and silver nitrate topically and pressure. The surgeon on-call was contacted and Dr. Humphrey recommended the patient be observed for recurrence of bleeding and to follow the hemoglobin. He had a CBC done with Hgb of 8.3 and had more bleeding in the ED, after the CBC was drawn. He is therefore ordered to get 1 unit of blood transfused and is be ing placed in Observation on the Hospitalist service. Patient was recently hospitalized at [facility] for pneumonia and anasarca, had his Lasix dose increased, got blood transfusions while there, and reports that some type of different ostomy equipment was started on him and it has rubbed against his stoma site, irritating it. The patient's other important past medical history is that of Hx of alcohol abuse and he has cirrhosis of the liver, he takes Lactulose and Propranolol and is followed by a Public Health Officer. His labs today showed an INR of 1.7, MCV of 105, normal plt count (which has been low in the past), AST 154, ALT 40, Bili 11.3. He also appears to have CKD and runs creatinine levels of 1.3-2.0. Today the creatinine is 1.3. We discussed his CODE BLUE wishes and he wants to be a Full Code. History - Past Medical History Cardiovascular: reports: Hypertension Respiratory: reports: None Neuro: reports: Migraines, Peripheral neuropathy Endocrine/Autoimmune: reports: None GI: reports: Esophageal varices, Cirrhosis : reports: None HEENT: reports: None Psych: reports: Depression, Anxiety Musculoskeletal: reports: Osteoarthritis, Gout MRSA Hx?: No - Past Surgical History General: reports: Bowel surgery, Colonoscopy, EGD Ortho: reports: Amputation (First finger of R hand, amputated distal finger in b omb accident.) - Family & Social History Family History: Mother: , Cancer, Father: Alive and Well Family History Comment/Other: Father is alive and just moved into assisted living. His mother from metastatic lung cancer. She was a non- smoker. Living arrangement: At home Living Situation: With spouse/s.o., With family Social History Notes: He lives at home with his who is a retired Marine. A daughter lives at home, a son is in the [employer]. He retired 1.5 years ago from [employer] for [employer]. They previously lived in [facility] for about 15 years before moving back to [facility] about a year ago. He s moked on and off for about 25 years but usually smoked no more than 3 cigarettes a day. He quit smoking in June 2020. He has a history of alcohol abuse and has been drinking alcohol on and off heavily for most of his life, used to consume 1L of whiskey every 2 days. Last mo he "fell off the wagon" and was drinking a fifth, then a 1/2 gallon daily. He quit 3 weeks ago. He has had withdrawal twice in his life, not 3 weeks ago. - Substance History Abuse: Recurrent use of substance despite neg consequences: Alcohol - POLST Patient has POLST: No Meds/Allgy - Home Medications Home Medications: Ambulatory Orders Medication Instructions Recorded Confirmed Acetaminophen [Tylenol] 650 mg PO Q6H PRN MDD 3000mg 07/28/20 04/20/21 Colchicine [Colcrys] 0.6 mg PO DAILY PRN 07/28/20 04/20/21 Lactulose 15 ml PO DAILY 07/28/20 04/20/21 Multivitamin 1 each PO DAILY 07/28/20 04/20/21 allopurinoL [Zyloprim] 100 mg PO DAILY 07/28/20 04/20/21 Omeprazole Magnesium 40 mg PO DAILY 08/14/20 04/20/21 Ondansetron Odt [Zofran Odt] 4 mg SL Q8H PRN 08/14/20 04/20/21 Oxycodone HCl 5 - 10 mg PO Q6H PRN 08/14/20 04/20/21 Propranolol [Inderal] 20 mg PO BID 08/14/20 04/20/21 lisinopriL [Prinivil] 5 mg PO DAILY 08/14/20 04/20/21 Ferrous Sulfate [Feosol] 325 mg PO BIDWM #60 tab 08/16/20 04/20/21 FLUoxetine [PROzac] 10 mg PO DAILY 04/20/21 04/20/21 Furosemide [Lasix] 40 mg PO DAILY 04/20/21 04/20/21 - Allergies Allergies/Adverse Reactions: Allergies Allergy/AdvReac Type Severity Reaction Status Date / Time No Known Drug Allergies Allergy Verified 04/19/21 23:50 Review of Systems - Constitutional Constitutional: reports: Fatigue - Eyes Eyes: reports: Other (Jaundice) - Cardiovascular Cariovascular: reports: Edema (He describes pitting edema all the way up to his abdomen), Lightheadedness - Respiratory Respiratory: reports: SOB at rest, SOB with exertion, Other (He has had NO COVID VACCINATIONS) - Gastrointestinal Gastrointestinal: reports: Abdominal distention, Other (Blood in colostomy bag today) - Musculoskeletal Musculoskeletal: reports: Gout - Integumentary Integumentary: reports: Other (Jaundice) - Psychiatric Psychiatric: reports: Depression, Anxiety - All Other Systems All Other Systems: reports: Reviewed and negative Exam - Vital Signs Reviewed Vital Signs: Yes Vital Signs: Vital Signs x48h Temp Pulse Resp BP Pulse Ox 04/20/21 01:30 103 H 27 H 142/76 H 97 04/20/21 01:00 94 30 H 147/81 H 96 04/20/21 00:42 22 97 04/20/21 00:41 95 27 H 153/76 H 88 L 04/20/21 00:11 97 24 152/108 H 95 04/19/21 23:53 36.6 C 99 20 142/85 H 95 04/19/21 23:50 36.6 C 99 20 142/85 H 95 - Physical Exam General Appearance: positive: Mild distress (Slight dyspnea when speaking) Eyes Bilateral: positive: Other (Scleral icterus) ENT: positive: No signs of dehydration Neck: positive: Nml inspection Respiratory: positive: Breath sounds nml Cardiovascular: positive: Regular rate & rhythm, No murmur Abdomen: positive: Non-tender, Other (Distended, probable fluid wave. Ostomy in LLQ with soft yellow-brown stool in bag and normal appearing stoma.) Skin: positive: Other (Icteric) Extremities: positive: Other (4+ edema to mid abdominal wall. R first digit 1/2 amputated.) Neurologic/Psychiatric: positive: Oriented x3 (Non-focal, no asterixis.) Conclusion/Plan - Problem List (1) Bleeding from colostomy stoma Conclusion/Plan: The bleeding vessel was visualized in the ED and managed by the ED provider. We will request consultation from the ostomy nurse and the general surgeon, for any further recommendations. (2) Anemia due to blood loss Conclusion/Plan: He is to receive 1 unit of blood transfused now. We will follow his H/H every 12 hours. (3) Symptomatic anemia Conclusion/Plan: He has complained of both shortness of breath and lightheadedness (4) Shortness of breath Conclusion/Plan: He dropped his oxygen saturation to 88% on room air while in the ED and was started on O2 per n.c. Will obtain a CXR, check BNP and possibly an Echo if CHF is found. Continue O2. Continue his diuretics. Follow I's and O's and daily weights. (5) Lightheadedness Conclusion/Plan: After the blood has been transfused, will order orthostatic vital sign checks and hold lisinopril and propranolol if blood pressure is low or if there is orthostasis (6) Liver cirrhosis Conclusion/Plan: As per Hx. He has known esophageal varices, takes Lactulose and Propranolol, is followed by GI. Will continue his usual meds. Follow CMP and daily ammonia level. Qualifiers: Hepatic cirrhosis type: alcoholic cirrhosis (7) Anasarca Conclusion/Plan: He has severe pitting edema all the way up to his mid abdominal wall. He says this was even worse when he was at [facility] and for this reason his Lasix dose was increased. Will continue with the higher dose of Lasix while here, follow I's and O's, daily weights, electrolytes and magnesium. If BNP is elevated and if chest x-ray shows CHF, will obtain an echo since he may have an alcoholic cardiomyopathy. (8) CKD (chronic kidney disease) Conclusion/Plan: All visits here reveled elevated creat, today it is 1.3. Possibly he has hepato- renal syndrome. Continue his diuresis. Follow BMP daily. Will avoid nephrotoxins. - Lab Results Fish Bones: 04/20/21 00:20 04/20/21 00:20
[2021-04-20] MEDS ORDERED: oxyCODONE 5 MG TABLET PO PRN (02:12)
[2021-04-20 02:13] LABS: B. PARAPERTUSSIS- RESP PCR PAN NOT DETECTED; B. PERTUSSIS- RESP PCR PANEL NOT DETECTED; C. PNEUMONIAE- RESP PCR PANEL NOT DETECTED; CORONAVIRUS 229E-RESP PCR NOT DETECTED; CORONAVIRUS HKU1-RESP PCR NOT DETECTED; CORONAVIRUS NL63-RESP PCR NOT DETECTED; CORONAVIRUS OC43-RESP PCR NOT DETECTED; HUMAN METAPNEUMOVIRUS NOT DETECTED; INFLUENZA A- RESP PCR PANEL NOT DETECTED; INFLUENZA B - RESP PCR PANEL NOT DETECTED; M. PNEUMONIAE- RESP PCR PANEL NOT DETECTED; PARAINFLUENZA VIRUS 1 NOT DETECTED; PARAINFLUENZA VIRUS 2 NOT DETECTED; PARAINFLUENZA VIRUS 3 NOT DETECTED; PARAINFLUENZA VIRUS 4 NOT DETECTED; RHINOVIRUS/ENTEROVIRUS NOT DETECTED; RSV- RESP PCR PANEL NOT DETECTED; SARS-CoV-2 -RESP PCR PANEL NOT DETECTED
[2021-04-20] MEDS ORDERED: FUROSEMIDE 40 MG/4 ML VIAL IVP ONE (06:00)
[2021-04-20] MEDS ORDERED: LACTULOSE 10 GM /15 ML UDC PO SCH (06:00)
--- NOTE | 2021-04-20 08:41 | XRAY Report ---
PROCEDURE: Chest 1 View X-Ray INDICATIONS: SOB, desaturation, has cirrhosis ascites TECHNIQUE: One view of the chest was acquired. COMPARISON: None FINDINGS: Surgical changes and devices: None. Lungs and pleura: Mild appearance of increased vascularity. There is slight increased density within the left base. Mediastinum: Mediastinal contours appear normal. Heart size is enlarged. Bones and chest wall: No suspicious bony lesions. Overlying soft tissues appear unremarkable. IMPRESSION: Increased vascularity suggestive of edema. Increased density within the left base, partially obscured by enlarged cardiac shadow. Small effusion or consolidation cannot be excluded. Reviewed by: Lottie De Paz MD on 04/20/2021 8:39 AM PDT Approved by: Lottie De Paz MD on 04/20/2021 8:39 AM PDT Station ID: [id number]
[2021-04-20] MEDS ORDERED: NON FORMULARY MED (Multivitamin [Multivitamin] 1 EACH Tablet) PO SCH (09:00)
--- NOTE | 2021-04-20 09:13 | PHARMACY PROGRESS NOTE ---
- Best Possible Medication History Admit Date and Time: 04/20/21 0146 Processed by: Nursing Medication History completed: Yes Patient Interview: Completed (MED REC COMPLETED BY NURSING) As the person ultimately responsible for medication therapy, providers are able to order a medication from an existing home medication list in [facility] via the "Reconcile Routine" prior to Confirmation of that medication by care support representative. Such practice is discouraged except when the physician, in their clinical judgment, deems that a medical need exists for a medication without regard to previous use.
[2021-04-20] MEDS: FERROUS SULFATE 325 MG TABLET PO SCH ×2 (09:15→18:17)
[2021-04-20] MEDS: allopurinoL 100 MG TABLET PO SCH (09:16)
[2021-04-20] MEDS: lisinopriL 5 MG TABLET PO SCH (09:16)
[2021-04-20] MEDS: FUROSEMIDE 40 MG TABLET PO SCH (09:16)
[2021-04-20] MEDS: PANTOPRAZOLE 40 MG TABLET PO SCH ×2 (09:16→21:05)
[2021-04-20] MEDS: MULTIVITAMIN TABLET PO SCH (09:16)
[2021-04-20] MEDS: LACTULOSE 10 GM /15 ML UDC PO SCH ×4 (09:16→18:17)
[2021-04-20] MEDS: PROPRANOLOL 40 MG TABLET PO SCH ×2 (09:16→21:01)
[2021-04-20] MEDS: FLUoxetine 10 MG CAPSULE PO SCH (09:16)
[2021-04-20] MEDS: SODIUM CHLORIDE FLUSH 0.9% 10 ML SYRINGE IVP SCH ×2 (09:20→18:18)
[2021-04-20 10:52] LABS: HGB - HEMOGLOBIN 7.9 g/dL (14.0-18.0); MEAN CORPUSCULAR HEMOGLOBIN 31.1 pg (27.0-31.0); MEAN CORPUSCULAR HGB CONC 30.4 g/dL (32.0-36.0); MEAN CORPUSCULAR VOLUME 102.4 fL (80.0-94.0); MEAN PLATELET VOLUME 9.5 fL (7.4-11.4); RED BLOOD COUNT 2.54 10^6/uL (4.70-6.10); RED CELL DISTRIBUTION WIDTH 23.9 % (12.0-15.0); WHITE BLOOD COUNT 7.1 x10^3/uL (4.8-10.8)
[2021-04-20 11:01] LABS: INR 1.9 (0.8-1.2); PT - PROTHROMBIN TIME 21.2 secs (9.9-12.6)
[2021-04-20 11:19] LABS: ALBUMIN/GLOBULIN RATIO 0.4 (1.0-2.2); BILIRUBIN,TOTAL 10.6 mg/dL (0.2-1.0); CALCIUM 8.2 mg/dL (8.5-10.3); CREATININE 1.4 mg/dL (0.6-1.2); POTASSIUM 3.7 mmol/L (3.5-5.0)
[2021-04-20] MEDS: ZINC OXIDE 20% OINT 30 GM TUBE TOP PRN ×2 (12:20→12:37)
[2021-04-20] MEDS: THIAMINE 100 MG TABLET PO SCH (18:17)
[2021-04-21] MEDS: SODIUM CHLORIDE FLUSH 0.9% 10 ML SYRINGE IVP SCH ×3 (01:15→17:30)
[2021-04-21] MEDS: BENZOCAINE/MENTHOL LOZENGE MM PRN ×2 (04:54→11:42)
[2021-04-21 06:34] LABS: BASOPHILS # (AUTO) 0.1 10^3/uL (0.0-0.1); BASOPHILS % (AUTO) 0.7 %; EOSINOPHILS # (AUTO) 0.4 10^3/uL (0.0-0.7); EOSINOPHILS % (AUTO) 6.2 %; HCT - HEMATOCRIT 24.9 % (42.0-52.0); HGB - HEMOGLOBIN 7.5 g/dL (14.0-18.0); LYMPHOCYTES # (AUTO) 0.7 10^3/uL (1.5-3.5); LYMPHOCYTES % (AUTO) 9.7 %; MEAN CORPUSCULAR HEMOGLOBIN 30.7 pg (27.0-31.0); MEAN CORPUSCULAR HGB CONC 30.1 g/dL (32.0-36.0); MEAN PLATELET VOLUME 9.5 fL (7.4-11.4); MONOCYTES # (AUTO) 0.7 10^3/uL (0.0-1.0); MONOCYTES % (AUTO) 9.8 %; NEUTROPHILS # (AUTO) 5.1 10^3/uL (1.5-6.6); NEUTROPHILS % (AUTO) 73.3 %; PLT - PLATELET COUNT 154 10^3/uL (130-450); RED BLOOD COUNT 2.44 10^6/uL (4.70-6.10); RED CELL DISTRIBUTION WIDTH 23.7 % (12.0-15.0); WHITE BLOOD COUNT 6.9 x10^3/uL (4.8-10.8)
[2021-04-21 06:40] LABS: CALCIUM 8.2 mg/dL (8.5-10.3); CREATININE 1.6 mg/dL (0.6-1.2)
[2021-04-21 07:28] LABS: PLATELET ESTIMATE, MANUAL NORMAL (130-450,000) (NORMAL); PLATELET MORPHOLOGY NORMAL APPEARANCE (NORMAL); SLIDE REVIEW? Indicated
[2021-04-21] MEDS ORDERED: rifAXIMin 550 MG TABLET PO SCH (09:00)
[2021-04-21] MEDS ORDERED: PROPRANOLOL 10 MG TABLET PO SCH (09:00)
[2021-04-21] MEDS: LACTULOSE 10 GM /15 ML UDC PO SCH ×4 (10:19→17:29)
[2021-04-21] MEDS: FERROUS SULFATE 325 MG TABLET PO SCH ×2 (10:19→17:29)
[2021-04-21] MEDS: MULTIVITAMIN TABLET PO SCH (10:20)
[2021-04-21] MEDS: lisinopriL 5 MG TABLET PO SCH (10:21)
[2021-04-21] MEDS: FLUoxetine 10 MG CAPSULE PO SCH (10:21)
[2021-04-21] MEDS: allopurinoL 100 MG TABLET PO SCH (10:21)
[2021-04-21] MEDS: THIAMINE 100 MG TABLET PO SCH (10:22)
[2021-04-21] MEDS: FUROSEMIDE 40 MG TABLET PO SCH (10:22)
[2021-04-21] MEDS: PANTOPRAZOLE 40 MG TABLET PO SCH (10:22)
[2021-04-21 16:09] LABS: HCT - HEMATOCRIT 30.4 % (42.0-52.0); HGB - HEMOGLOBIN 9.4 g/dL (14.0-18.0); MEAN CORPUSCULAR HEMOGLOBIN 30.9 pg (27.0-31.0); MEAN CORPUSCULAR HGB CONC 30.9 g/dL (32.0-36.0); RED BLOOD COUNT 3.04 10^6/uL (4.70-6.10); RED CELL DISTRIBUTION WIDTH 23.1 % (12.0-15.0); WHITE BLOOD COUNT 7.7 x10^3/uL (4.8-10.8)
--- NOTE | 2021-04-21 17:33 | DISCHARGE SUMMARY ---
Discharge Summary Admit Date: 04/20/21 Discharge Date: 04/21/21 Discharging Provider: Ajay Gresham Code Status: Attempt Resuscitation Condition at Discharge: Stable Discharge Disposition: 01 Home, Self Care - DIAGNOSES Admission Diagnoses: Bleeding from colostomy stoma Anemia due to blood loss Symptomatic anemia Shortness of breath Lightheadedness Liver cirrhosis Anasarca Chronic kidney disease Discharge Diagnoses with Status of Each Condition: Bleeding from colostomy stoma: Acute. Resolved/ Improved. Anemia due to blood loss: Stable. Total of 2 units of PRBC transfused Shortness of breath Lightheadedness: Improved/Resolved s/p transfusion. 2D echo showed preserved EF at 65-70% Liver cirrhosis: s/p recent TIPS procedure Anasarca: 2/2 Liver Cirrhosis. On Lasix 40mg po daily Chronic kidney disease - HPI History of Present Illness: Per HPI: This is a 51-year-old male, born in [facility], with a history of colostomy placed 1 and 1/2 years ago, while he lived in [facility], done for gangrenous bowel. He has had trouble with recurrent bleeding from the colostomy stoma site, and was admitted here 8 mos ago with this. At 10:30 PM today the patient noticed bleeding in his colostomy bag and he emptied his colostomy bag 4 times, each time it was filled with blood. He presented to the ED and had complaints was of lightheadedness and Shortness of breath. The ED provider examined the ostomy stoma and noted an area of active bleeding from a small arteriole which was managed with injection of lidocaine with epi and silver nitrate topically and pressure. The surgeon on-call was contacted and Dr. Humphrey recommended the patient be observed for recurrence of bleeding and to follow the hemoglobin. He had a CBC done with Hgb of 8.3 and had more bleeding in the ED, after the CBC was drawn. He is therefore ordered to get 1 unit of blood transfused and is being placed in Observation on the Hospitalist service. Patient was recently hospitalized at [facility] for pneumonia and anasarca, had his Lasix dose increased, got blood transfusions while there, and reports that some type of different ostomy equipment was started on him and it has rubbed against his stoma site, irritating it. The patient's other important past medical history is that of Hx of alcohol abuse and he has cirrhosis of the liver, he takes Lactulose and Propranolol and is followed by a Labor Contract Analyst. His labs today showed an INR of 1.7, MCV of 105, normal plt count (which has been low in the past), AST 154, ALT 40, Bili 11.3. He also appears to have CKD and runs creatinine levels of 1.3-2.0. Today the creatinine is 1.3. We discussed his CODE BLUE wishes and he wants to be a Full Code. - HOSPITAL COURSE Hospital Course: The site of bleeding was visualized by the ED provider and thought to be arterial. Direct pressure was applied and the bleeding stopped. Lidocaine with epi and silver nitrate was applied topically and a TXA dressing was placed. He was then admitted to the hospital where you received 2 units of packed red blood cells over the course of your hospital stay. By the time of discharge her hemoglobin was 9.4. There was intermittent bleeding which stopped without any intervention. His colostomy dressing was addressed by the colostomy nurse. The patient's case was discussed with Dr Jessica Montana (general surgeon) on 04/21/21 who advised no intervention in the absence of a persistent bleed. She expressed that some oozing/weeping of granulation tissue around the colostomy site is to be expected due to increased pressure in the abdomen from to edema related to Liver Cirrhosis. He was instructed to take Lasix 40 mg p.o. twice daily for 5 days upon discharge. He was prescribed spironolactone 25 mg p.o. twice daily. The patient also had a total bilirubin of 10.6 on 04/21/21 and appear very jaundiced. On 04/03/2021 in [facility] his total bilirubin of 4 An abdominal ultrasound of the abdomen was done on 04/06/2021 which showed patent TIPS catheter with velocities at the upper limits of normal measuring 200 cm/s. Multiple gallbladder stones were noted but no gallbladder wall thickening or pericholecystic fluid. Negative sonographic Maharaj sign. There was no intrahepatic ductal dilatation. The extrahepatic bile duct was not well seen. he has a follow-up appointment with gastroenterology at [facility] on May 18 2021 He also had a 2D echocardiogram at [facility] on 04/04/2021 which showed your ejection fraction at 40 to 45%. There was mild to moderate global hypokinesis of the left ventricle. Repeat 2D echocardiogram on 04/21/2021 showed an ejection fraction of 65 to 70%. There was no regional wall motion abnormality noted. Overall left ventricular systolic function was normal. A Lexiscan stress test done on 04/15/2021 in [facility] which was unremarkable. Patient may follow-up with your primary care physician within 7 days or as needed. - ALLERGIES Allergies/Adverse Reactions: Allergies Allergy/AdvReac Type Severity Reaction Status Date / Time No Known Drug Allergies Allergy Verified 04/19/21 23:50 - MEDICATIONS Home Medications: Ambulatory Orders Medication Instructions Recorded Confirmed Acetaminophen [Tylenol] 650 mg PO Q6H PRN MDD 3000mg 07/28/20 04/20/21 Colchicine [Colcrys] 0.6 mg PO DAILY PRN 07/28/20 04/20/21 Lactulose 20 gm PO TID 07/28/20 04/20/21 Multivitamin 1 each PO DAILY 07/28/20 04/20/21 allopurinoL [Zyloprim] 100 mg PO DAILY 07/28/20 04/20/21 Ondansetron Odt [Zofran Odt] 4 mg SL Q8H PRN 08/14/20 04/20/21 Propranolol [Inderal] 20 mg PO BID 08/14/20 04/20/21 Ferrous Sulfate [Feosol] 325 mg PO BIDWM #60 tab 08/16/20 04/20/21 FLUoxetine [PROzac] 30 mg PO DAILY 04/20/21 04/20/21 Furosemide [Lasix] 40 mg PO DAILY 04/20/21 04/20/21 Pantoprazole Sodium [Protonix] 40 mg PO DAILY 04/20/21 04/20/21 amLODIPine [Norvasc] 5 mg PO DAILY 04/20/21 04/20/21 rifAXIMin [Xifaxan] 550 mg PO BID 04/20/21 04/20/21 Furosemide [Lasix] 40 mg PO BID 5 Days #10 tablet 04/21/21 Spironolactone [Aldactone] 25 mg PO BID 30 Days #60 tablet 04/21/21 - PHYSICAL EXAM AT DISCHARGE General Appearance: positive: Alert, Mild distress Eyes Bilateral: positive: PERRL, EOMI, Other (Scleral Icterus) ENT: positive: No signs of dehydration Respiratory: positive: Chest non-tender, No respiratory distress, Breath sounds nml Cardiovascular: positive: Regular rate & rhythm, No murmur Abdomen: positive: Other (Distended, Colostomy bag in place) Back: positive: Nml inspection, CVA tenderness (R) Skin: positive: Warm, Dry, Other (Jaundiced) Extremities: positive: Non-tender, Pedal edema (Anasarca) Neurologic/Psychiatric: positive: Oriented x3, Mood/affect nml - LABS Result Diagrams: 04/21/21 16:04 04/21/21 05:55 - TIME SPENT Time Spent in Discharge (Minutes): 25
--- NOTE | 2021-04-21 17:58 | Discharge Plan ---
Discharge Plan Problem Reviewed?: Yes Disposition: 01 Home, Self Care Condition: Stable Diet: Regular Activity Restrictions: Activity as Tolerated Health Concerns: You were admitted on 04/20/2021 with bleeding from your colostomy site. It was visualized by the ED provider and thought to be arterial. Direct pressure was applied and the bleeding stopped. Lidocaine with epi and silver nitrate was applied topically and a TXA dressing was placed. You were then admitted to the hospital where you received 2 units of packed red blood cells over the course of your hospital stay. By the time of discharge her hemoglobin was 9.4. There was intermittent bleeding which stopped without any intervention. Your colostomy dressing was addressed by the colostomy nurse. Your case was discussed with the surgeon who advised no intervention in the absence of a persistent bleed. She expressed that some oozing/weeping of granulation tissue around the colostomy site is to be expected due to increased pressure in the abdomen from to edema related to Liver Cirrhosis. If the bleeding recurs and persist, do not feel to return for reevaluation. You also had total bilirubin of 10.6 on 04/21/21 and appear very jaundiced. On 04/03/2021 in [facility] you had total bilirubin of 4 You had not ultrasound of the abdomen done on 04/06/2021 which showed patent TIPS catheter with velocities at the upper limits of normal measuring 200 cm/s. Multiple gallbladder stones were noted but no gallbladder wall thickening or pericholecystic fluid. Negative sonographic Maharaj sign. There was no intrahepatic ductal dilatation. The extrahepatic bile duct was not well seen. You have a follow-up appointment with gastroenterology at [facility] in April 2021 You had a 2D echocardiogram at [facility] on 04/04/2021 which showed your ejection fraction at 40 to 45%. There was mild to moderate global hypokinesis of the left ventricle. Repeat 2D echocardiogram on 04/21/2021 showed an ejection fraction of 65 to 70%. There was no regional wall motion abnormality noted. Overall left ventricular systolic function was normal. You had a Lexiscan stress test done on 04/15/2021 in [facility] which was unremarkable. You may follow-up with your primary care physician within 7 days or as needed. No Smoking: If you smoke, Please STOP! Call for help.
[2021-04-21 19:23] VITALS: BP 130/67
== END 2021-04-21 19:11 | disposition home or self-care (01) ==
LOC: EDUNIT# → ED 23:42 → MS2 04-20 01:46
PROVIDERS: ADMIT Internal Medicine; ATTEND Internal Medicine
DX: K91.840 Postprocedural hemorrhage of a digestive system organ or structure following a digestive system procedure (principal); K94.01 Colostomy hemorrhage; Y83.3 Surgical operation with formation of external stoma as the cause of abnormal reaction of the patient, or of later complication, without mention of misadventure at the time of the procedure; D50.0 Iron deficiency anemia secondary to blood loss (chronic); K74.60 Unspecified cirrhosis of liver; I12.9 Hypertensive chronic kidney disease with stage 1 through stage 4 chronic kidney disease, or unspecified chronic kidney disease; N18.9 Chronic kidney disease, unspecified; K80.20 Calculus of gallbladder without cholecystitis without obstruction; G62.9 Polyneuropathy, unspecified; F32.9 Major depressive disorder, single episode, unspecified; F41.9 Anxiety disorder, unspecified; M19.90 Unspecified osteoarthritis, unspecified site; M10.9 Gout, unspecified; Z20.822 Contact with and (suspected) exposure to COVID-19; Z89.021 Acquired absence of right finger(s); Z87.19 Personal history of other diseases of the digestive system; Z87.01 Personal history of pneumonia (recurrent); Z87.891 Personal history of nicotine dependence; Z96.89 Presence of other specified functional implants; Z79.899 Other long term (current) drug therapy
CPT/HCPCS: 0202U; 36415; 36430; 71045; 80048; 80053; 82140; 83690; 83880; 85025; 85027; 85610; 85730; 86850; 86900; 86901; 86920; 93005; 93306; 96374; 99285; A9270; G0378; J8499; P9016

== ENCOUNTER 2022-08-16 06:38 | Outpatient (CLI) | payer OTHER ==
--- NOTE | 2022-08-16 11:10 | Ultrasound Report ---
PROCEDURE: Abdomen Complete INDICATIONS: ALCOHOLIC CIRRHOSIS TECHNIQUE: Real-time scanning was performed of the abdominal and retroperitoneal organs, with image documentatio n. COMPARISON: None. FINDINGS: Liver: Heterogeneous liver echogenicity with a nodular contour. No solid mass identified. A cystic le pepe with an internal septation measuring 2.9 cm and the right hepatic lobe, benign. Patent main hepa tic vein stent. Gallbladder: Cholelithiasis without evidence of acute cholecystitis. Biliary ducts: Intrahepatic bile ducts are non-dilated. Extrahepatic bile duct caliber measures 5 m m. Normal is 6-7 mm or less in diameter, or 10 mm or less post-cholecystectomy. Pancreas: Visualized portions of the pancreas are sonographically normal. Spleen: Spleen is normal in size and homogeneous in echotexture. Kidneys: Kidneys are normal in size and echotexture. Right kidney measures 12 cm long; left kidney measures 11.6 cm long. No hydronephrosis or nephrolithiasis. No solid masses. Aorta: Visualized aorta is normal in caliber at less than 3 cm. Iliacs: Proximal common iliac arteries are normal in caliber at less than 2.5 cm. IVC: Intrahepatic inferior vena cava is patent. Miscellaneous: No free abdominal fluid. IMPRESSION: Cirrhosis. No solid mass. A patent main hepatic vein stent. Reviewed by: Arash Zambrano on 08/16/2022 11:09 AM [facility] Approved by: Arash Zambrano on 08/16/2022 11:09 AM [facility] Station ID: [id number]
== END 2022-08-16 06:39 | disposition home or self-care (01) ==
LOC: DI 06:38
PROVIDERS: ATTEND Internal Medicine Gastroenterology
DX: K70.30 Alcoholic cirrhosis of liver without ascites (principal); Z95.828 Presence of other vascular implants and grafts